=== PATIENT | female | born 1965 | race Caucasian/White ===

== ENCOUNTER 2019-09-14 13:13 | Inpatient (IN) | payer OTHER ==
[~2019-09-14] VITALS: Ht 172.7 cm; Wt 98.0 kg
[2019-09-14] MEDS ORDERED: FAMOTIDINE 20 MG/2 ML VIAL IV STA ×2 (13:16→22:41)
[2019-09-14] MEDS ORDERED: METHYLPREDNISOLONE SOD SUCC 125 MG/2ML VIAL IV STA (13:16)
[2019-09-14] MEDS ORDERED: IPRATROPIUM BROMIDE 0.02% 2.5 ML NEB NEB STA (13:16)
[2019-09-14] MEDS ORDERED: ALBUTEROL SULF 0.083% NEB SOLN 3 ML NEB NEB STA (13:16)
[2019-09-14] MEDS ORDERED: SODIUM CHLORIDE 0.9% 1000ML 1,000 ML IV STA (13:16)
--- OUTSIDE RECORDS SUMMARY | 2019-09-14 13:17 | XMS REPORT ---
Author [facility] Address Unknown Phone Unavailable Care Team Providers Care Banking Analyst Name Role Phone ANIA GUTIERREZ Unavailable Unavailable ANDREW ORTEGA Unavailable Unavailable Payers Payer Name Policy Type Policy Number Effective Date Expiration Date Problems This patient has no known problems. Allergies, Adverse Reactions, Alerts This patient has no known allergies or adverse reactions. Medications This patient has no known medications. Encounters Start Date/Time End Date/Time Encounter Type Admission Type Attending [facility] Care Department Encounter ID 2019-05-04 16:23:00 2019-05-04 16:23:00 Emergency E MHSE [id number] 2019-03-23 09:48:00 2019-03-23 09:48:00 Outpatient MHSE MHSE [id number] 2019-01-12 16:16:00 2019-01-12 16:16:00 Outpatient MHSE [id number] Results Test Description Test Time Test Comments Text Results Atomic Results Result Comments POCT-GLUCOSE METER 2019-09-13 07:01:00 POC-GLUCOSE METER (BEAKER) (test prfo=1954) 216 mg/dL 70-110 : TESTED AT [place] [id number] [facility], [address]: [employer] Helper [id number] for ESPERANZA SERNA POCT-GLUCOSE [id number] 21:44:00* Test Item Value Reference Range Comments POC-GLUCOSE METER (BEAKER) (test vbsg=3435) 200 mg/dL 70-110 : TESTED AT [place] [id number] [facility], [address]: [employer] Helper [id number] for WHITLEY CLAROS POCT-GLUCOSE [id number] 17:33:00* Test Item Value Reference Range Comments POC-GLUCOSE METER (BEAKER) (test bojo=2674) 221 mg/dL 70-110 : TESTED AT [address], [address]: [employer] Helper [id number] for JOSE LUIS JEFFERY POCT-GLUCOSE [id number] 11:51:00* Test Item Value Reference Range Comments POC-GLUCOSE METER (BEAKER) (test pxnx=9460) 169 mg/dL 70-110 : Notified RN/MD: TESTED AT [address], [address]: [employer] Helper [id number] for TERENCE LINNTELL POCT-GLUCOSE [id number] 07:26:00* Test Item Value Reference Range Comments POC-GLUCOSE METER (BEAKER) (test belx=4423) 130 mg/dL 70-110 : Notified RN/MD: TESTED AT [address], [address]: [employer] Helper [id number] for TERENCE LINNTELL POCT-GLUCOSE [id number] 21:28:00* Test Item Value Reference Range Comments POC-GLUCOSE METER (BEAKER) (test bnjd=2876) 215 mg/dL 70-110 : TESTED AT [address], [address]: [employer] Operator Helper [id number] for Katya Chavez POCT-GLUCOSE [id number] 17:27:00* Test Item Value Reference Range Comments POC-GLUCOSE METER (BEAKER) (test mrjw=1638) 152 mg/dL 70-110 : TESTED AT [address], [address]: [employer] Operator Helper [id number] for BOBBI DESOUZA POCT-GLUCOSE [id number] 13:17:00* Test Item Value Reference Range Comments POC-GLUCOSE METER (BEAKER) (test knti=0882) 258 mg/dL 70-110 : TESTED AT [address], [address]: [employer] Operator Helper [id number] for OHSELENE MILES POCT-BLOOD GASES, [id number] 14:28:00* Test Item Value Reference Range Comments TEMP, CELSIUS-POC (BEAKER) (test xyzp=1431) 37.0 FIO2-POC (BEAKER) (test aksh=3469) TESTED AT [address] [address] PH, ARTERIAL-POC (BEAKER) (test whll=6973) 7.407 7.350-7.450 PCO2, ARTERIAL-POC (BEAKER) (test helc=3061) 27.6 mm Hg 35.0-45.0 PO2, ARTERIAL-POC (BEAKER) (test jfdd=2261) 95.0 mm Hg 80.0-90.0 SO2, ARTERIAL-POC (BEAKER) (test lrjm=8283) 98.0 % 96.0-97.0 HCO3, ARTERIAL-POC (BEAKER) (test bbtc=5852) 17.4 meq/L 21.0-29.0 BASE EXCESS, ARTERIAL-POC (BEAKER) (test nlts=6361) -7.0 meq/L -2.0-3.0 [id number] 14:28:00* Test Item Value Reference Range Comments POC-SODIUM (BEAKER) (test hnlc=7053) 137 meq/L 135-148 TESTED AT [place] [id number] [id number] 14:28:00* Test Item Value Reference Range Comments POC-POTASSIUM (BEAKER) (test shtc=3371) 4.1 meq/L 3.6-5.5 TESTED AT [place] [address]130 [id number] 14:28:00* Test Item Value Reference Range Comments POC-GLUCOSE (BEAKER) (test ksiy=6913) 359 mg/dL 70-110 TESTED AT [place] [address]130 POCT-CALCIUM [id number] 14:28:00* Test Item Value Reference Range Comments POC-CALCIUM IONIZED (BEAKER) (test vgcc=2530) 1.19 mmol/L 1.12-1.27 TESTED AT [place] [address]130 [id number] 14:28:00* Test Item Value Reference Range Comments POC-HEMATOCRIT (BEAKER) (test bomt=7667) 40 % 36-45 TESTED AT [place] [address]130 [id number] 14:28:00* Test Item Value Reference Range Comments POC-HEMOGLOBIN (MELISSA) (test dqmv=1675) 13.6 g/dL 12.0-15.0 TESTED AT [facility] [address] [facility] [address] AT [facility] [address] [facility] [address] TROPONIN [id number] 14:07:00* Test Item Value Reference Range Comments TROPONIN I (MELISSA) (test xcyk=569) < ng/mL 0.00-0.03 Troponin I (TnI) levels must be interpreted in the context of the presenting sym ptoms and the clinical findings. Elevated TnI levels indicate myocardial damage, but are not specific for ischemic heart disease. Elevated TnI levels are seen in patients with other cardiac conditions (including myocarditis and congestive h eart failure), and slight TnI elevations occur in patients with other conditions , including sepsis, renal failure, acidosis, acute neurological disease, and per sistent tachyarrhythmia.[employer] ID - HASEEB [id number] 14:01:00* Test Item Value Reference Range Comments MAGNESIUM (MELISSA) (test irei=930) 2.3 mg/dL 1.6-2.6 Specimen slightly hemolyzed [employer] ID - HASEEB CB-TYPE NATRIURETIC FACTOR (BNP)2019-09-09 13:37:00* Test Item Value Reference Range Comments B-TYPE NATRIURETIC PEPTIDE (MELISSA) (test qsbd=185) 16 pg/mL 0-100 [employer] ID - HASEEB CRAD, CHEST, 2 [id number] 12:29:00Reason for exam:->sob, coughFINAL REPORT INDICATION: sob, cough COMPARISON: None TECHNIQUE: Frontal and lateral views of the chest. FINDINGS: Lungs and pleura: Clear lungs. No effusion.Heart and mediastinum: Normal heart size. Unremarkable mediastinal contours.Osseous structures: No acute abnormality.Additional findings: None. IMPRESSION: No acute intrathoracic abnormality. Signed: Mikki Earl Verified Date/Time: 09/09/2019 12:29:29 Reading Location: [facility] Radiology Reading Room C METABOLIC [id number] 12:19:00* Test Item Value Reference Range Comments SODIUM (BEAKER) (test yqcy=536) 136 meq/L 136-145 POTASSIUM (BEAKER) (test ruov=817) 4.4 meq/L 3.5-5.1 CHLORIDE (BEAKER) (test gabz=188) 105 meq/L 98-107 CO2 (BEAKER) (test ojwg=503) 21 meq/L 22-29 BLOOD UREA NITROGEN (BEAKER) (test fthw=857) 15 mg/dL 7-21 CREATININE (BEAKER) (test jdfw=661) 0.98 mg/dL 0.57-1.25 GLUCOSE RANDOM (BEAKER) (test wryc=992) 163 mg/dL 70-105 CALCIUM (BEAKER) (test nibm=627) 9.4 mg/dL 8.4-10.2 EGFR (BEAKER) (test srzc=2685) 59 mL/min/1.73 sq m ESTIMATED GFR IS NOT ACCURATE CREATININE CLEARANCE IN PREDICTING GLOMERULAR FILTRATION RATE. ESTIMATED GFR IS NOT APPLICABLE FOR DIALYSIS PATIENTS. [employer] ID - HASEEB CCBC W/PLT COUNT & AUTO [id number] 12:05:00* Test Item Value Reference Range Comments WHITE BLOOD CELL COUNT (BEAKER) (test xwhv=418) 9.8 K/ L 3.5-10.5 RED BLOOD CELL COUNT (BEAKER) (test agfg=198) 4.59 M/ L 3.93-5.22 HEMOGLOBIN (BEAKER) (test ayap=802) 13.9 GM/DL 11.2-15.7 HEMATOCRIT (BEAKER) (test zbut=777) 40.9 % 34.1-44.9 MEAN CORPUSCULAR VOLUME (BEAKER) (test sakb=288) 89.1 fL 79.4-94.8 MEAN CORPUSCULAR HEMOGLOBIN (BEAKER) (test ibdk=782) 30.3 pg 25.6-32.2 MEAN CORPUSCULAR HEMOGLOBIN CONC (BEAKER) (test zlsa=357) 34.0 GM/DL 32.2-35.5 RED CELL DISTRIBUTION WIDTH (BEAKER) (test clch=786) 13.6 % 11.7-14.4 PLATELET COUNT (BEAKER) (test ifxz=676) 254 K/CU MM 150-450 MEAN PLATELET VOLUME (BEAKER) (test wbdr=807) 9.2 fL 9.4-12.3 NUCLEATED RED BLOOD CELLS (BEAKER) (test lchs=296) 0 /100 WBC 0-0 NEUTROPHILS RELATIVE PERCENT (BEAKER) (test sles=410) 83 % LYMPHOCYTES RELATIVE PERCENT (BEAKER) (test zmdw=235) 12 % MONOCYTES RELATIVE PERCENT (BEAKER) (test bgxx=446) 3 % EOSINOPHILS RELATIVE PERCENT (BEAKER) (test tzio=237) 0 % BASOPHILS RELATIVE PERCENT (BEAKER) (test pauw=238) 1 % NEUTROPHILS ABSOLUTE COUNT (BEAKER) (test rarg=099) 8.20 K/ L 1.56-6.13 LYMPHOCYTES ABSOLUTE COUNT (BEAKER) (test btgj=423) 1.20 K/ L 1.18-3.74 MONOCYTES ABSOLUTE COUNT (BEAKER) (test fjsh=124) 0.29 K/ L 0.24-0.36 EOSINOPHILS ABSOLUTE COUNT (BEAKER) (test liuw=848) 0.00 K/ L 0.04-0.36 BASOPHILS ABSOLUTE COUNT (BEAKER) (test jyfb=884) 0.06 K/ L 0.01-0.08 IMMATURE GRANULOCYTES-RELATIVE PERCENT (BEAKER) (test zclt=3084) 1 % 0-1 CT, [id number] 18:46:00FINAL REPORT EXAMINATION: CT SCAN OF THE ABDOMEN AND PELVIS CLINICAL HISTORY:Abdominal distention. Bowel obstruction, low-grade. COMPARISON EXAM: None TECHNIQUE: Following the administration of oral and IV contrast, axial tomographic images were acquired through the abdomen and pelvis. The exam was performed according to our departmental dose optimization program which includes automated exposure control, adjustment of the mA and/or kV according to patient's size and/or use of iterative reconstructive technique. FINDINGS: There is an infraumbilical midline abdominal wall incision. Fluid is noted within the subcutaneous tissues along the incision extending for 7 cm in length by 2 cm in width by 3 cm in the AP dimension. Finding may reflect postoperative seroma, abscess or resolving hematoma. No associated gas. Small volume of gas and scattered punctate foci of increased attenuation are also noted in the subcutaneous tissues of the abdominal wall compatible with subcutaneous injection sites. The heart size is normal. No evidence of a pericardial or pleural effusion. Minimal atelectasis is noted in the dependent portion of the lung bases. Distal esophagus is decompressed. The gallbladder is absent. No evidence of pathologic biliary dilat ation. The liver demonstrates relatively homogeneous enhancement. Pancreas demon strates mild atrophy with fatty infiltration. The spleen measures 12 cm in lengt h. No evidence of an adrenal mass. No evidence of renal obstruction, nephrolithi asis or perinephric edema. The ureters are decompressed. The oral contrast admin istered for today's examination has migrated into the descending colon. No evide nce of mechanical bowel obstruction, pneumatosis or pneumoperitoneum. Segments of the colon including the ascending, transverse, sigmoid and rectosigmoid segme nts demonstrate mild wall thickening. Mild colonic diverticulosis is also suspec brayden without definite evidence of diverticulitis. The aorta is normal in caliber. Contrast also opacifies the portal venous system, mesenteric vessels, renal ves sels, IVC, iliac and visualized femoral vessels although evaluation of the femor al and iliac veins is mildly limited by timing of the contrast bolus. Uterus is absent. No evidence of an adnexal mass. The bladder demonstrates wall thickening but is also decompressed. There is also subtle infiltration of the soft tissues adjacent to the bladder. Postoperative changes are noted involving the spine at the level of L4-L5 and L5-S1. Associated streak artifact limits characterization of the adjacent bony and soft tissues. IMPRESSION: Midline infraumbilical i ncision with a 7 x 2 x 3 cm subcutaneous fluid collection, possible postoperativ e seroma. Abscess or resolving hematoma would also be in the differential diagno sis. Recommend clinical correlation. Bladder wall thickening with subtle infiltr ation of the soft tissues, nonspecific but possible cystitis. Urinalysis correla tion recommended. Mild segmental colonic wall thickening. Incomplete distention versus a colitis. No evidence of mechanical bowel obstruction. Signed: Alin Villareal MDReport Verified Date/Time: 12/05/2018 18:46:28 Reading Location: [address] Reading Room [id number] 07:03:00* Test Item Value Reference Range Comments PHOSPHORUS (BEAKER) (test edyg=057) 4.3 mg/dL 2.3-4.7 [id number] 07:03:00* Test Item Value Reference Range Comments MAGNESIUM (BEAKER) (test auca=248) 2.2 mg/dL 1.6-2.6 BASIC METABOLIC [id number] 07:03:00* Test Item Value Reference Range Comments SODIUM (BEAKER) (test vyxh=884) 141 meq/L 136-145 POTASSIUM (BEAKER) (test smmb=123) 4.0 meq/L 3.5-5.1 CHLORIDE (BEAKER) (test oaeb=826) 107 meq/L 98-107 CO2 (BEAKER) (test dzom=128) 26 meq/L 22-29 BLOOD UREA NITROGEN (BEAKER) (test pqwq=496) 8 mg/dL 7-21 CREATININE (BEAKER) (test rtcn=533) 0.80 mg/dL 0.57-1.25 GLUCOSE RANDOM (BEAKER) (test aeeo=390) 134 mg/dL 70-105 CALCIUM (BEAKER) (test ahlh=190) 9.2 mg/dL 8.4-10.2 EGFR (BEAKER) (test jnli=5496) 75 mL/min/1.73 sq m ESTIMATED GFR IS NOT ACCURATE CREATININE CLEARANCE IN PREDICTING GLOMERULAR FILTRATION RATE. ESTIMATED GFR IS NOT APPLICABLE FOR DIALYSIS PATIENTS. RAD, ABDOMEN/KUB, 1 VIEW [id number] 16:36:00Reason for exam:->constipation, hx of bowel loopsFINAL REPORT EXAM: AP abdominal radiograph HISTORY PROVIDED: Constipation, history of bowel loops COMPARISON: None available IMPRESSION:The bowel gas pattern is nonspecific but appears nonobstructive. There is a moderate to large amount of stool within the colon compatible with a clinical diagnosis of constipation. While no definite free air is seen, this examination is insensitive for the detection of free air. Vertebroplasty changes are noted in the lower lumbar spine. Surgical clips are noted in the right upper quadrant. No acute osseous abnormality. Signed: Jj Guerrero [facility] Verified Date/Time: 12/03/2018 16:36:40 Reading Location: [facility] , SPINE, LUMBAR, [id number] 13:39:00FINAL REPORT MR, SPINE, THORACIC, WITH \T\ WITHOUT CONTRAST, MR, SPINE, LUMBAR, WITH \T\ WITHOUT CONTRAST INDICATION: Mid-back/thoracic spine pain, first study09/2018 L45 and L5 S1 fusion then L5 compression fx wtih ky phoplasty 11/05/18 bowel incontinence and T10 sensory level TECHNIQUE: Multiplana r, multisequence unenhanced MR images of the entire spine were obtained. DINORAH RISON: None FINDINGS:Thoracic spine:The vertebral bodies have normal height, ali gnment, and signal intensity. The intervertebral discs have normal height and si gnal intensity. The spinal cord is normal in caliber and signal intensity. There is no significant foraminal or spinal canal stenosis. Paraspinal soft tissues a re unremarkable. Lumbar spine:Anterior stabilization hardware involving L5-S1 an d L4-5 with interbody spacer placement. Vertebroplasty changes are noted within the L4 and L5 vertebral bodies. Otherwise normal signal characteristics are exhi bited by the vertebral bodies. There is no malalignment or aggressive lesion. Th e conus medullaris terminates at the L1 level. The descending nerve roots of the cauda equina are normal in appearance and free of abnormal postcontrast enhance ment. There is no significant foraminal or spinal canal stenosis. Paraspinal so ft tissue structures are unremarkable. IMPRESSION: No aggressive osseous lesio n is identified within the thoracic or lumbar spine. There is no abnormal enhanc ement of the osseous or nervous structures. Vertebroplasty changes noted at L4 a nd L5; anterior fusion hardware at L4-5 and L5-S1 with interbody spacer placemen t. Alignment is preserved. No canal or foraminal stenosis. Signed: JR Colmenares Robert [facility] Verified Date/Time: 12/03/2018 13:39:44 Reading Location: [facility] C013 Neuro Reading Room , SPINE, THORACIC, [id number] 13:39:00FINAL REPORT MR, SPINE, THORACIC, WITH \T\ WITHOUT CONTRAST, MR, SPINE, LUMBAR, WITH \T\ WITHOUT CONTRAST INDICATION: Mid-back/thoracic spine pain, first study09/2018 L45 and L5 S1 fusion then L5 compression fx wtih ky phoplasty 11/05/18 bowel incontinence and T10 sensory level TECHNIQUE: Multiplana r, multisequence unenhanced MR images of the entire spine were obtained. DINORAH RISON: None FINDINGS:Thoracic spine:The vertebral bodies have normal height, ali gnment, and signal intensity. The intervertebral discs have normal height and si gnal intensity. The spinal cord is normal in caliber and signal intensity. There is no significant foraminal or spinal canal stenosis. Paraspinal soft tissues a re unremarkable. Lumbar spine:Anterior stabilization hardware involving L5-S1 an d L4-5 with interbody spacer placement. Vertebroplasty changes are noted within the L4 and L5 vertebral bodies. Otherwise normal signal characteristics are exhi bited by the vertebral bodies. There is no malalignment or aggressive lesion. Th e conus medullaris terminates at the L1 level. The descending nerve roots of the cauda equina are normal in appearance and free of abnormal postcontrast enhance ment. There is no significant foraminal or spinal canal stenosis. Paraspinal so ft tissue structures are unremarkable. IMPRESSION: No aggressive osseous lesio n is identified within the thoracic or lumbar spine. There is no abnormal enhanc ement of the osseous or nervous structures. Vertebroplasty changes noted at L4 a nd L5; anterior fusion hardware at L4-5 and L5-S1 with interbody spacer placemen t. Alignment is preserved. No canal or foraminal stenosis. Signed: JR Colmenares Robert MDReport Verified Date/Time: 12/03/2018 13:39:44 Reading Location: [address] Neuro Reading Room , SPINE, LUMBAR, 2 OR 3 [id number] 11:56:00 Reason for exam:->L5 compression fx wtih kyphoplasty 11/05/18 bowel incontinence and T10 sensory levelShould this be performed at the bedside?->YesFINAL REPORT Lumbar spine. HISTORY: L5 compression fracture with kyphoplasty. Bowel incontinence. COMPARISON STUDY: None available. FINDINGS: Three views of the lumbar spine demonstrate prior kyphoplasty at L5 and L4. There has been anterior fusion at L4/L5 and L5/S1 with placement of interverteb ral discs. No definite acute fracture is seen. MRI has been ordered. Signed: Raffaele Barros Verified Date/Time: 12/03/2018 11:56:59 Reading Location: [facility] Radiology Reading Room [id number] 06:34:00* Test Item Value Reference Range Comments PHOSPHORUS (BEAKER) (test cuxt=050) 4.7 mg/dL 2.3-4.7 [id number] 06:34:00* Test Item Value Reference Range Comments MAGNESIUM (BEAKER) (test yorc=101) 2.1 mg/dL 1.6-2.6 BASIC METABOLIC [id number] 06:34:00* Test Item Value Reference Range Comments SODIUM (BEAKER) (test epjz=985) 141 meq/L 136-145 POTASSIUM (BEAKER) (test kksb=921) 3.9 meq/L 3.5-5.1 CHLORIDE (BEAKER) (test mbno=954) 106 meq/L 98-107 CO2 (BEAKER) (test kcuk=678) 28 meq/L 22-29 BLOOD UREA NITROGEN (BEAKER) (test ypfo=818) 9 mg/dL 7-21 CREATININE (BEAKER) (test este=530) 0.75 mg/dL 0.57-1.25 GLUCOSE RANDOM (BEAKER) (test vsoe=640) 126 mg/dL 70-105 CALCIUM (BEAKER) (test ndzg=329) 9.1 mg/dL 8.4-10.2 EGFR (BEAKER) (test xsnn=8237) 81 mL/min/1.73 sq m ESTIMATED GFR IS NOT ACCURATE CREATININE CLEARANCE IN PREDICTING GLOMERULAR FILTRATION RATE. ESTIMATED GFR IS NOT APPLICABLE FOR DIALYSIS PATIENTS. HEMOGLOBIN [id number] 13:50:00* Test Item Value Reference Range Comments HEMOGLOBIN A1C (BEAKER) (test nsfo=853) 6.3 % 4.3-6.1 MR, SPINE, CERVICAL, [id number] 10:55:00FINAL REPORT MR, SPINE, CERVICAL, WITH \T\ WITHOUT CONTRAST INDICATION: dizziness, neck pain, TECHNIQUE: Multiplanar, multisequence MR imaging of the cervical spine was performed with and without intravenous contrast. COMPARISON: None. FINDINGS: Cord: Normal caliber. No signal abnormalities. No abnormal postcontrast enhancement. Osseous structures: No aggressive osseous lesions or abnormal postcontrast enhancement is identified in the cervical vertebral bodies. Chronic compression deformity is evident at C7 without retropulsion. The craniocervical junction is normal. Discs: Normal height and signal intensity. Canal: No critical canal or foraminal lungs. Soft tissues: Paraspinal soft tissues are unremarkable. IMPRESSION: Unremarkable MR examination of the cervical spine. Signed: JR Colmenares Robert MDReport Verified Date/Time: 12/02/2018 10:55:04 Reading Location: [address] Neuro Reading Room Electronically sig isaiah by: DARRON COLMENARES on 12/02/2018 10:55 AM MR, BRAIN, [id number] 10:36:00FINAL REPORT MR, BRAIN, WITH \T\ WITHOUT CONTRAST INDICATION: dizziness, neck pain TECHNIQUE: Multiplanar, multisequence MR imaging of the brain was obtained before and after uneventful administration of gadolinium contrast. COMPARISON: Correlations noncontrast head CT obtained December 01, 2018 FINDINGS:No foci of abnormal enhancement, restricted diffusion, or susceptibility artifact are seen within the brain parenchyma or extra-axial spaces. Negligible deep white matter changes are present in the supratentorial brain. There is no intracranial hemorrhage, extra-axial collection, or mass. The ventricular system is normal in size and configuration. The cortical sulci are within normal limits. The larger intracranial vascular flow voids are preserved. No abnormality of the skull base or calvarium is present. The visualized paranasal sinuses, mastoid air cells, and orbits are within normal limits. IMPRESSION: No imaging abnormality to explain the provided symptoms. Signed: JR Colmenares Robert MDReport Verified Date/Time: 12/02/2018 10:36:05 Reading Location: [address] Neuro Reading Room [id number] 10:31:00* Test Item Value Reference Range Comments PHOSPHORUS (BEAKER) (test znog=471) 5.0 mg/dL 2.3-4.7 [id number] 10:31:00* Test Item Value Reference Range Comments MAGNESIUM (BEAKER) (test eaco=463) 1.9 mg/dL 1.6-2.6 HEPATIC FUNCTION [id number] 10:31:00* Test Item Value Reference Range Comments TOTAL PROTEIN (BEAKER) (test ptgk=723) 6.1 gm/dL 6.0-8.3 ALBUMIN (BEAKER) (test mbwn=3904) 3.5 g/dL 3.5-5.0 BILIRUBIN TOTAL (BEAKER) (test kixu=232) 0.5 mg/dL 0.2-1.2 BILIRUBIN DIRECT (BEAKER) (test rryn=475) 0.2 mg/dL 0.1-0.5 ALKALINE PHOSPHATASE (BEAKER) (test vjzk=363) 98 U/L 40-150 AST (SGOT) (BEAKER) (test uawv=348) 14 U/L 5-34 ALT (SGPT) (BEAKER) (test lyzw=735) 25 U/L 6-55 BASIC METABOLIC [id number] 09:53:00* Test Item Value Reference Range Comments SODIUM (BEAKER) (test qalo=728) 140 meq/L 136-145 POTASSIUM (BEAKER) (test ozom=533) 3.7 meq/L 3.5-5.1 CHLORIDE (BEAKER) (test vgbl=849) 106 meq/L 98-107 CO2 (BEAKER) (test rmfn=658) 27 meq/L 22-29 BLOOD UREA NITROGEN (BEAKER) (test irre=809) 11 mg/dL 7-21 CREATININE (BEAKER) (test iegi=921) 0.79 mg/dL 0.57-1.25 GLUCOSE RANDOM (BEAKER) (test nrwj=262) 111 mg/dL 70-105 CALCIUM (BEAKER) (test iwgw=061) 8.8 mg/dL 8.4-10.2 EGFR (BEAKER) (test uioh=8061) 76 mL/min/1.73 sq m ESTIMATED GFR IS NOT ACCURATE CREATININE CLEARANCE IN PREDICTING GLOMERULAR FILTRATION RATE. ESTIMATED GFR IS NOT APPLICABLE FOR DIALYSIS PATIENTS. PT/[id number] 06:31:00* Test Item Value Reference Range Comments PROTIME (BEAKER) (test lxqn=043) 12.9 seconds 11.7-14.7 INR (BEAKER) (test xmqx=897) 1.0 <=5.9 PARTIAL THROMBOPLASTIN TIME (BEAKER) (test pbfa=115) 31.0 seconds 22.5-36.0 RECOMMENDED COUMADIN/WARFARIN INR THERAPY RANGESSTANDARD DOSE: 2.0 - 3.0 Inclu susy: PROPHYLAXIS for venous thrombosis, systemic embolization; TREATMENT for miranda ous thrombosis and/or pulmonary embolus.HIGH RISK: Target INR is 2.5-3.5 for pat ients with mechanical heart valves.PROTHROMBIN TIME/[id number] 06:30:00* Test Item Value Reference Range Comments PROTIME (BEAKER) (test jkho=648) 12.9 seconds 11.7-14.7 INR (BEAKER) (test kova=612) 1.0 <=5.9 RECOMMENDED COUMADIN/WARFARIN INR THERAPY RANGESSTANDARD DOSE: 2.0 - 3.0 Inclu susy: PROPHYLAXIS for venous thrombosis, systemic embolization; TREATMENT for miranda ous thrombosis and/or pulmonary embolus.HIGH RISK: Target INR is 2.5-3.5 for pat ients with mechanical heart valves.CBC W/PLT COUNT & AUTO [id number] 06:24:00* Test Item Value Reference Range Comments WHITE BLOOD CELL COUNT (BEAKER) (test shnx=799) 7.9 K/ L 3.5-10.5 RED BLOOD CELL COUNT (BEAKER) (test wtrq=248) 4.33 M/ L 3.93-5.22 HEMOGLOBIN (BEAKER) (test ahfw=440) 12.3 GM/DL 11.2-15.7 HEMATOCRIT (BEAKER) (test gtll=936) 39.4 % 34.1-44.9 MEAN CORPUSCULAR VOLUME (BEAKER) (test buyj=159) 91.0 fL 79.4-94.8 MEAN CORPUSCULAR HEMOGLOBIN (BEAKER) (test vryl=885) 28.4 pg 25.6-32.2 MEAN CORPUSCULAR HEMOGLOBIN CONC (BEAKER) (test qbso=930) 31.2 GM/DL 32.2-35.5 RED CELL DISTRIBUTION WIDTH (BEAKER) (test gcuj=665) 13.2 % 11.7-14.4 PLATELET COUNT (BEAKER) (test jhlp=558) 239 K/CU MM 150-450 MEAN PLATELET VOLUME (BEAKER) (test azoj=913) 9.2 fL 9.4-12.3 NUCLEATED RED BLOOD CELLS (BEAKER) (test pbkb=326) 0 /100 WBC 0-0 NEUTROPHILS RELATIVE PERCENT (BEAKER) (test nais=351) 53 % LYMPHOCYTES RELATIVE PERCENT (BEAKER) (test rhrj=338) 37 % MONOCYTES RELATIVE PERCENT (BEAKER) (test kgjp=959) 6 % EOSINOPHILS RELATIVE PERCENT (BEAKER) (test zjeg=618) 2 % BASOPHILS RELATIVE PERCENT (BEAKER) (test ubai=068) 1 % NEUTROPHILS ABSOLUTE COUNT (BEAKER) (test jqqx=395) 4.14 K/ L 1.56-6.13 LYMPHOCYTES ABSOLUTE COUNT (BEAKER) (test nmhc=843) 2.91 K/ L 1.18-3.74 MONOCYTES ABSOLUTE COUNT (BEAKER) (test rzdl=295) 0.47 K/ L 0.24-0.36 EOSINOPHILS ABSOLUTE COUNT (BEAKER) (test ntgo=959) 0.19 K/ L 0.04-0.36 BASOPHILS ABSOLUTE COUNT (BEAKER) (test fgfa=600) 0.06 K/ L 0.01-0.08 IMMATURE GRANULOCYTES-RELATIVE PERCENT (BEAKER) (test gywz=9160) 1 % 0-1 POCT-GLUCOSE [id number] 21:26:00* Test Item Value Reference Range Comments POC-GLUCOSE METER (BEAKER) (test wcxo=6053) 118 mg/dL 70-110 TESTED AT [address] [address] TROPONIN [id number] 15:54:00* Test Item Value Reference Range Comments TROPONIN I (BEAKER) (test rjgw=106) < ng/mL 0.00-0.03 Troponin I (TnI) levels must be interpreted in the context of the presenting sym ptoms and the clinical findings. Elevated TnI levels indicate myocardial damage, but are not specific for ischemic heart disease. Elevated TnI levels are seen in patients with other cardiac conditions (including myocarditis and congestive h eart failure), and slight TnI elevations occur in patients with other conditions , including sepsis, renal failure, acidosis, acute neurological disease, and per sistent tachyarrhythmia.BASIC METABOLIC [id number] 15:53:00* Test Item Value Reference Range Comments SODIUM (BEAKER) (test eghv=621) 144 meq/L 136-145 POTASSIUM (BEAKER) (test jnuw=671) 4.3 meq/L 3.5-5.1 CHLORIDE (BEAKER) (test qeit=693) 108 meq/L 98-107 CO2 (BEAKER) (test iqjh=257) 26 meq/L 22-29 BLOOD UREA NITROGEN (BEAKER) (test avuk=304) 12 mg/dL 7-21 CREATININE (BEAKER) (test juda=164) 0.80 mg/dL 0.57-1.25 GLUCOSE RANDOM (BEAKER) (test cwqf=127) 113 mg/dL 70-105 CALCIUM (BEAKER) (test akwr=372) 9.6 mg/dL 8.4-10.2 EGFR (BEAKER) (test ohnq=4051) mL/min/1.73 sq m INSUFFICIENT CLINICAL DATA TO CALCULATE ESTIMATED GFR. [id number] 15:47:00* Test Item Value Reference Range Comments MAGNESIUM (BEAKER) (test ddtv=655) 2.2 mg/dL 1.6-2.6 HEPATIC FUNCTION [id number] 15:47:00* Test Item Value Reference Range Comments TOTAL PROTEIN (BEAKER) (test zbpq=778) 6.7 gm/dL 6.0-8.3 ALBUMIN (BEAKER) (test uddw=7158) 3.9 g/dL 3.5-5.0 BILIRUBIN TOTAL (BEAKER) (test ergz=765) 0.5 mg/dL 0.2-1.2 BILIRUBIN DIRECT (BEAKER) (test keew=754) 0.2 mg/dL 0.1-0.5 ALKALINE PHOSPHATASE (BEAKER) (test pswn=972) 107 U/L 40-150 AST (SGOT) (BEAKER) (test zqow=583) 17 U/L 5-34 ALT (SGPT) (BEAKER) (test xssh=148) 31 U/L 6-55 CT, BRAIN, WITHOUT [id number] 15:31:00Reason for exam:->HeadacheIs the patient ?->UnknownWhat is the patient's sedation requirement?->No SedationFINAL REPORT CT head without contrast. Reason for exam: Headacheheadache dizziness Comparisons: No priors Discussion: Multiple axial CT images of the head are provided without contrast evaluated in brain and bone windows. This exam was performed according to our departmental dose optimization program which includes automated exposure control, adjustment of the mA and/or kV according to patient's size and/or use of iterative reconstructive technique. Colby-white differentiation is maintained. There is no CT evidence of intracranial hemorrhage, mass-effect, hydrocephalus, shift, or extra-axial collections. The visualized orbital contents, bones and surrounding soft tissues are unremarkable. The visualized paranasal sinuses and mastoid air cells are unremarkable. Impressions: No CT evidence of acute intracranial process. Signed: Clarissa [place] Verified Date/Time: 12/01/2018 15:31:55 Reading Location: [facility] Radiology Reading Room B-TYPE NATRIURETIC FACTOR (BNP)2018-12-01 15:09:00* Test Item Value Reference Range Comments B-TYPE NATRIURETIC PEPTIDE (BEAKER) (test bpkq=176) 32 pg/mL 0-100 CBC W/PLT COUNT & AUTO [id number] 14:27:00* Test Item Value Reference Range Comments WHITE BLOOD CELL COUNT (BEAKER) (test qmcx=900) 9.1 K/ L 3.5-10.5 RED BLOOD CELL COUNT (BEAKER) (test kaij=997) 4.66 M/ L 3.93-5.22 HEMOGLOBIN (BEAKER) (test ivlo=732) 13.5 GM/DL 11.2-15.7 HEMATOCRIT (BEAKER) (test zpve=597) 41.9 % 34.1-44.9 MEAN CORPUSCULAR VOLUME (BEAKER) (test egxf=023) 89.9 fL 79.4-94.8 MEAN CORPUSCULAR HEMOGLOBIN (BEAKER) (test ihfp=773) 29.0 pg 25.6-32.2 MEAN CORPUSCULAR HEMOGLOBIN CONC (BEAKER) (test whsj=178) 32.2 GM/DL 32.2-35.5 RED CELL DISTRIBUTION WIDTH (BEAKER) (test onrb=687) 13.3 % 11.7-14.4 PLATELET COUNT (BEAKER) (test ovcl=651) 254 K/CU MM 150-450 MEAN PLATELET VOLUME (BEAKER) (test xrjp=499) 9.2 fL 9.4-12.3 NUCLEATED RED BLOOD CELLS (BEAKER) (test kocc=353) 0 /100 WBC 0-0 NEUTROPHILS RELATIVE PERCENT (BEAKER) (test qryi=558) 62 % LYMPHOCYTES RELATIVE PERCENT (BEAKER) (test qiqq=769) 30 % MONOCYTES RELATIVE PERCENT (BEAKER) (test ftot=863) 5 % EOSINOPHILS RELATIVE PERCENT (BEAKER) (test rduy=118) 2 % BASOPHILS RELATIVE PERCENT (BEAKER) (test hhvy=257) 1 % NEUTROPHILS ABSOLUTE COUNT (BEAKER) (test pavb=511) 5.57 K/ L 1.56-6.13 LYMPHOCYTES ABSOLUTE COUNT (BEAKER) (test pkts=534) 2.69 K/ L 1.18-3.74 MONOCYTES ABSOLUTE COUNT (BEAKER) (test grfb=361) 0.46 K/ L 0.24-0.36 EOSINOPHILS ABSOLUTE COUNT (BEAKER) (test wpsu=121) 0.14 K/ L 0.04-0.36 BASOPHILS ABSOLUTE COUNT (BEAKER) (test yurn=288) 0.08 K/ L 0.01-0.08 IMMATURE GRANULOCYTES-RELATIVE PERCENT (BEAKER) (test hxwn=3939) 1 % 0-1
[2019-09-14] MEDS ORDERED: MAGNESIUM SULFATE 2GM/50ML 50 ML IV ONE (13:30)
[2019-09-14] MEDS ORDERED: DEXAMETHASONE SOD PHOS 10 MG/1 ML VIAL IM ONE (13:30)
[2019-09-14] MEDS ORDERED: DIPHENHYDRAMINE HCL INJ 50 MG/ML VIAL IV ONE ×2 (13:30→21:00)
[2019-09-14 13:53] LABS: BASOPHILS # (AUTO) 0.1 (0.0-0.1); BASOPHILS % 0.4 % (0.0-1.0); HEMATOCRIT 44.1 % (34.2-44.1); HEMOGLOBIN 14.6 g/dL (12.0-16.0); LYMPHOCYTES # (AUTO) 1.4 (1.0-3.2); LYMPHOCYTES % 10.9 % (18.0-39.1); MEAN CORPUSCULAR HEMOGLOBIN 29.9 pg (28-32); MEAN CORPUSCULAR HGB CONC 33.1 g/dL (31-35); MEAN CORPUSCULAR VOLUME 90.4 fL (81-99); MONOCYTES # (AUTO) 0.4 (0.2-0.8); NEUTROPHILS # (AUTO) 10.7 (2.1-6.9); NEUTROPHILS % 83.6 % (38.7-80.0); PLATELET COUNT 320 x10e3/uL (140-360); RED BLOOD COUNT 4.88 x10e6/uL (3.6-5.1); RED CELL DISTRIBUTION WIDTH 13.9 % (11.7-14.4)
[2019-09-14] MEDS ORDERED: LEVALBUTEROL HCL SOLN NEBU 1.25 MG/3 ML NEB ONE (14:00)
[2019-09-14 14:04] LABS: ABG PH 7.48 (7.31-7.41)
[2019-09-14 14:05] LABS: ABG HCO3 21 mmol/L (23-28); ABG PCO2 29 mmHg (41-51); ABG PO2 55 mmHg (80-105)
[2019-09-14 14:18] LABS: ALBUMIN 4.3 g/dL (3.5-5.0); ALBUMIN/GLOBULIN RATIO 1.3 (0.8-2.0); ANION GAP 18.4 mmol/L (8-16); CALCIUM 9.6 mg/dL (8.4-10.2); CREATININE, SERUM 1.14 mg/dL (0.57-1.11); POTASSIUM 4.4 mmol/L (3.5-5.1)
[2019-09-14 14:26] LABS: CREATINE KINASE MB 2.7 ng/mL (0-5.0)
[2019-09-14] MEDS ORDERED: CEFTRIAXONE SOD 1 GM VIAL IV ONE (14:45)
[2019-09-14] MEDS ORDERED: LEVALBUTEROL HCL SOLN NEBU 1.25 MG/3 ML NEB INH PRN (14:45)
[2019-09-14] MEDS ORDERED: AZITHROMYCIN 500MG/SOD CHL 0.9% 250ML BAG IV SCH (14:45)
[2019-09-14] MEDS ORDERED: SODIUM CHLORIDE 0.9% 1000ML 1,000 ML IV SCH (14:45)
[2019-09-14] MEDS ORDERED: AZITHROMYCIN 500MG/NS 250 ML 250 ML IV ONE (14:45)
[2019-09-14] MEDS ORDERED: CEFTRIAXONE SOD 1 GM VIAL IV SCH (14:45)
--- NOTE | 2019-09-14 15:27 | Diagnostic Imaging Report ---
Exam: Chest radiograph Clinical History: Allergic reaction Findings: The cardiomediastinal silhouette and lungs are normal. The regional skeleton and soft tissue are unremarkable. There is no evidence of pleural effusion or pneumothorax. Impression: No radiographic evidence of acute cardiopulmonary disease. Signed by: Dr. Lucho Church MD on 09/14/2019 3:24 PM
[2019-09-14] MEDS ORDERED: AZITHROMYCIN 500MG/NS 250 ML 250 ML IV SCH (15:30)
[2019-09-14] MEDS: CEFTRIAXONE SOD 1 GM/NS 50 ML 50 ML IV SCH (16:10)
[2019-09-14] MEDS ORDERED: ONDANSETRON HCL INJ 2MG/ML 2ML 2 MG/ML VIAL IV PRN (16:15)
[2019-09-14] MEDS ORDERED: ACETAMINOPHEN 325 MG TAB PO PRN (16:15)
[2019-09-14] MEDS ORDERED: INSULIN REGULAR, HUMAN 100 UNIT/1 ML 3ML VIAL IV ONE (16:30)
[2019-09-14] MEDS ORDERED: DEXTROSE 50% SYRINGE 50 ML IV PRN (16:45)
[2019-09-14] MEDS: BACLOFEN 10 MG TAB PO SCH (16:58)
[2019-09-14] MEDS: PANTOPRAZOLE SOD 40 MG TABEC PO SCH (16:58)
[2019-09-14] MEDS: HYDROCODONE/APAP 10MG-325MG TAB PO PRN (16:59)
[2019-09-14] MEDS ORDERED: FAMOTIDINE 20 MG/2 ML VIAL IV SCH (17:00)
--- NOTE | 2019-09-14 17:08 | Diagnostic Imaging Report ---
Exam: CT chest, Clinical history: Severe asthma, Technique: Helical images of the chest were obtained without contrast DOSE REDUCTION: The exams was performed according to the departmental dose-optimization program which includes automated exposure control, adjustment of the mA and/or kV according to patient size and/or use of iterative reconstruction technique. Findings: There is no evidence of pulmonary consolidation, edema, pleural effusion, or pneumothorax. A noncalcified nodule measuring 3.8 mm is noted in the right lower lobe on image 60, series 2. The tracheobronchial tree is clear. The cardiac size is within normal limits. Mild focal thickening of the pericardium is noted. There is no evidence of mediastinal or hilar lymphadenopathy. The great vessels are normal in caliber and orientation. The visualized upper abdominal solid organs are unremarkable. Impression: 1. There is a 3.8 mm noncalcified nodule in the right lower lobe. If indicated, follow-up imaging in 12 months is recommended to ensure stability. 2. Status post cholecystectomy. Signed by: Dr. Lucho Church MD on 09/14/2019 5:05 PM
[2019-09-14] MEDS: INSULIN LISPRO 100 UNIT/1 ML 3ML VIAL SQ SCH ×2 (17:28→21:46)
[2019-09-14] MEDS: INSULIN GLARGINE 100 UNITS/ML VIAL SQ SCH (18:05)
[2019-09-14] MEDS: ENOXAPARIN SOD INJ 40 MG/0.4 ML SYR SC SCH (18:12)
[2019-09-14] MEDS: METHOCARBAMOL 750 MG TAB PO SCH (18:25)
[2019-09-14] MEDS: METHYLPREDNISOLONE SOD SUCC 40 MG/ML VIAL 1ML IV SCH ×2 (18:26→23:37)
--- NOTE | 2019-09-14 18:56 | NUR ---
report given to Jorge NICOLE
[2019-09-14] MEDS: ALBUTEROL/IPRATROPIUM 3 ML NEB NEB SCH ×2 (19:00→23:00)
[2019-09-14] MEDS ORDERED: IPRATROPIUM BROMIDE 0.02% 2.5 ML NEB NEB SCH (19:00)
[2019-09-14 19:44] LABS: LYMPHOCYTES % (MANUAL) 20 % (19-48); MONOCYTES % (MANUAL) 5 % (3.4-9.0); NEUTROPHILS % (MANUAL) 73 % (40-74); PLATELET ESTIMATE ADEQUATE; PLATELET MORPHOLOGY COMMENT NORMAL; RBC MORPHOLOGY COMMENT NORMAL
[2019-09-14] MEDS: DIPHENHYDRAMINE HCL INJ 50 MG/ML VIAL IV PRN (19:51)
--- NOTE | 2019-09-14 19:57 | NUR ---
PT C/O ITCHING AND RASH RETURNING. MEDICATED PER ORDERS C BENADRYL.
[2019-09-14] MEDS: DULOXETINE HCL 30 MG DELAYED RELEASE PO SCH (21:45)
[2019-09-14] MEDS: SIMVASTATIN 20 MG TAB PO SCH (21:45)
[2019-09-14] MEDS: POLYETHYLENE GLYCOL 3350 17 GM PACK PO SCH (21:46)
[2019-09-14] MEDS: PRAMIPEXOLE DIHYDROCHLORIDE 1 MG TAB PO SCH (22:28)
[2019-09-14] MEDS ORDERED: METHYLPREDNISOLONE SOD SUCC 125 MG/2ML VIAL IV ONE (22:45)
[2019-09-14 23:51] VITALS: BP 141/79
--- NOTE | 2019-09-14 23:51 | NUR ---
Received patient from ER via wheelchair. Patient in stable condition, no s/s of distress at this time. All safety measures in place. Will continue to monitor.
[2019-09-15] VITALS (9 sets, daily range): BP systolic 107–141; BP diastolic 60–81
[2019-09-15] MEDS: HYDROCODONE/APAP 10MG-325MG TAB PO PRN ×3 (00:21→14:48)
[2019-09-15] MEDS ORDERED: MUCINEX DM ER1 EACH PO (01:16)
[2019-09-15] MEDS ORDERED: EPINEPHRIN0.3 MG/0.3 IM (01:16)
[2019-09-15] MEDS ORDERED: ASCORBIC ACID500 MG PO (01:16)
[2019-09-15] MEDS ORDERED: BROMPHENIR-PSE118 ML PO (01:16)
[2019-09-15] MEDS ORDERED: MIRAPEX1 MG PO (01:16)
[2019-09-15] MEDS ORDERED: IPRAT-ALBUT 0.5-3 ML NEB (01:16)
[2019-09-15] MEDS ORDERED: PANTOPRAZOLE SO40 MG PO (01:16)
[2019-09-15] MEDS ORDERED: ZOFRAN8 MG PO (01:16)
[2019-09-15] MEDS ORDERED: DOCUSATE SODIU100 MG PO (01:16)
[2019-09-15] MEDS ORDERED: POLYETHYLENE GL17 GM PO (01:16)
[2019-09-15] MEDS ORDERED: BUDESONIDE0.5 GM NEB (01:16)
[2019-09-15] MEDS ORDERED: METHOCARBAMOL750 MG PO (01:16)
[2019-09-15] MEDS ORDERED: MONTELUKAST SOD10 MG PO (01:16)
[2019-09-15] MEDS ORDERED: SIMVASTATIN20 MG PO (01:16)
[2019-09-15] MEDS ORDERED: NYSTATIN100000 UNI PO (01:16)
[2019-09-15] MEDS ORDERED: YUVAFEM10 MCG VG (01:16)
[2019-09-15] MEDS ORDERED: FLONASE 50 MCG (01:16)
[2019-09-15] MEDS ORDERED: CETIRIZINE HCL10 MG PO (01:16)
[2019-09-15] MEDS ORDERED: BACLOFEN10 MG PO (01:16)
[2019-09-15] MEDS ORDERED: VICTOZA 2-0.6 MG/0.1 SC (01:16)
[2019-09-15] MEDS ORDERED: VITAMIN B-121000 MCG PO (01:16)
[2019-09-15] MEDS ORDERED: FLUTICASONE-SA1 EAC2 INH (01:16)
[2019-09-15] MEDS ORDERED: MOVANTIK25 MG PO (01:16)
[2019-09-15] MEDS ORDERED: NORCO 10-325 T1 EACH PO (01:16)
[2019-09-15] MEDS ORDERED: PREDNISONE10 MG PO (01:16)
[2019-09-15] MEDS ORDERED: OS-CAL 500+D T1 EACH PO (01:16)
[2019-09-15] MEDS: DIPHENHYDRAMINE HCL INJ 50 MG/ML VIAL IV PRN (02:06)
[2019-09-15] MEDS: ALBUTEROL/IPRATROPIUM 3 ML NEB NEB SCH ×6 (02:40→23:20)
[2019-09-15] MEDS: SODIUM CHLORIDE 0.9% 1000ML 1,000 ML IV SCH ×2 (04:00→13:09)
--- NOTE | 2019-09-15 04:47 | NUR ---
Patient c/o of worsened itching all over body. Called Dr. Newman and received orders to give Benadryl 50 mg IV now, and then change current PRN Benadryl order to 50 mg IV Q4H PRN.
[2019-09-15] MEDS ORDERED: DIPHENHYDRAMINE HCL INJ 50 MG/ML VIAL IV PRN (05:00)
[2019-09-15] MEDS ORDERED: DIPHENHYDRAMINE HCL INJ 50 MG/ML VIAL IV ONE (05:00)
[2019-09-15] MEDS: METHYLPREDNISOLONE SOD SUCC 40 MG/ML VIAL 1ML IV SCH (05:57)
--- NOTE | 2019-09-15 07:09 | NUR ---
Bedside report given to day nurse. Patient in bed, no s/s of distress at this time. All safety measures in place.
[2019-09-15] MEDS: PANTOPRAZOLE SOD 40 MG TABEC PO SCH ×2 (07:17→17:17)
[2019-09-15] MEDS: INSULIN LISPRO 100 UNIT/1 ML 3ML VIAL SQ SCH ×4 (07:30→19:59)
[2019-09-15 08:19] LABS: BASOPHILS % 0.2 % (0.0-1.0); EOSINOPHILS % 0.3 % (0.0-6.0); HEMOGLOBIN 14.4 g/dL (12.0-16.0); LYMPHOCYTES # (AUTO) 1.1 (1.0-3.2); LYMPHOCYTES % 6.7 % (18.0-39.1); MEAN CORPUSCULAR HGB CONC 32.7 g/dL (31-35); MEAN CORPUSCULAR VOLUME 91.7 fL (81-99); MONOCYTES % 6.4 % (4.4-11.3); NEUTROPHILS # (AUTO) 13.4 (2.1-6.9); PLATELET COUNT 325 x10e3/uL (140-360); RED CELL DISTRIBUTION WIDTH 13.7 % (11.7-14.4)
[2019-09-15 08:38] LABS: ANION GAP 16.1 mmol/L (8-16); CALCIUM 8.3 mg/dL (8.4-10.2); MAGNESIUM 2.8 MG/DL (1.3-2.1); POTASSIUM 4.1 mmol/L (3.5-5.1)
[2019-09-15] MEDS: BACLOFEN 10 MG TAB PO SCH ×2 (08:54→17:14)
[2019-09-15] MEDS: MONTELUKAST SODIUM 10 MG TAB PO SCH (08:54)
[2019-09-15] MEDS: LORATADINE 10 MG TAB PO SCH (08:54)
[2019-09-15] MEDS: METHOCARBAMOL 750 MG TAB PO SCH ×2 (08:54→17:14)
[2019-09-15] MEDS: CEFTRIAXONE SOD 1 GM/NS 50 ML 50 ML IV SCH (08:59)
[2019-09-15 09:11] LABS: PHOSPHORUS 2.5 MG/DL (2.3-4.7)
[2019-09-15] MEDS ORDERED: LORAZEPAM 1 MG TAB PO NR (12:50)
[2019-09-15] MEDS: METHYLPREDNISOLONE SOD SUCC 125 MG/2ML VIAL IV SCH ×3 (13:10→23:53)
[2019-09-15] MEDS: DIPHENHYDRAMINE HCL INJ 50 MG/ML VIAL IV SCH ×4 (14:00→23:00)
[2019-09-15] MEDS ORDERED: DIPHENHYDRAMINE HCL INJ 50 MG/ML VIAL IV SCH (14:00)
[2019-09-15] MEDS ORDERED: DIPHENHYDRAMINE HCL INJ 50 MG/ML VIAL IM STA (14:50)
[2019-09-15] MEDS ORDERED: CALCIUM CARBONATE PO SCH (17:00)
[2019-09-15] MEDS ORDERED: VITAMIN D3 PO SCH (17:00)
[2019-09-15] MEDS: NYSTATIN SUSPENSION 5 ML UDC PO SCH (17:14)
[2019-09-15] MEDS: FAMOTIDINE 20 MG/2 ML VIAL IV SCH (17:14)
[2019-09-15] MEDS: OYST-CAL-D 500MG TABLET PO SCH (17:14)
[2019-09-15] MEDS: INSULIN GLARGINE 100 UNITS/ML VIAL SQ SCH (17:19)
[2019-09-15] MEDS: ENOXAPARIN SOD INJ 40 MG/0.4 ML SYR SC SCH (17:19)
[2019-09-15] MEDS: BUDESONIDE 0.5MG/2 ML NEB INH SCH (18:45)
--- NOTE | 2019-09-15 19:15 | NUR ---
patient received awake, alert, lying quietly in bed. vss. no c/o pain noted. generalized rash remains. blood sugar 467. call placed to re: blood sugar. lantus 20 units sq x 1 ordered. ivf continue to infuse without difficulty. pm assessment complete. noted at the bedside. both patient/ instructed to call for assistance when needed.
--- NOTE | 2019-09-15 19:41 | NUR ---
PATIENT IN STABLE CONDITION WITH NO S/S OF RESPIRATORY DISTRESS. NO PAIN VOICED. IV FLUIDS INFUSING. TELEMETRY APPLIED. PRESENT IN ROOM. CALL LIGHT IS WITHIN REACH, PATIENT INSTRUCTED TO CALL FOR ASSISTANCE NEEDED. BEDSIDE SHIFT REPORT GIVEN TO ONCOMING NURSE.
[2019-09-15] MEDS ORDERED: INSULIN GLARGINE 100 UNITS/ML VIAL SQ SCH (20:00)
--- NOTE | 2019-09-15 20:37 | Consultation ---
DATE OF CONSULTATION: REASON FOR CONSULTATION: Severe skin rash, concerned about infection, cellulitis versus allergic reaction, severe. HISTORY OF PRESENT ILLNESS: This patient, who is a 54-year-old white female, who has history of severe asthma, she has seen several doctors before including an drug safety coordinator, which she was seen for the last five years. She had a workup of it and all came back, apparently she is allergic to several chemicals and environmental . She has been having episodes with asthma and actually. She was in [facility]. She was there for 5 days on steroids. She was discharged with high dose of steroids she was in the hospital a couple of days and then woke up with severe rash and severe itching. The rash is maculopapular rash, and scattered on all her body her back and her lower extremity, so the patient came to the emergency room because she was quite concerned. She called her coding technician. The patient is telling me that she had bad asthma when she was in the hospital before she passed out couple of times with shortness of breath, but the right now she is not short of breath. She is doing okay, but when it is bothering her she cannot sleep and with severe itching. PAST MEDICAL HISTORY: Besides asthma, she had back pain. PAST SURGICAL HISTORY: Back surgery. ALLERGIES: BUT SHE IS ALLERGIC TO TAPE. SHE SHOWED A PICTURE, SHE HAD SOME PROBLEM WITH THAT SEVERAL YEARS AGO. MEDICATION LIST: At the present time reviewed, she was on Tylenol, DuoNeb, baclofen, Pepcid, and prednisone. PHYSICAL EXAMINATION: GENERAL: She is currently alert, oriented, does not seem to be in acute distress. VITAL SIGNS: Stable and afebrile. HEENT: Normocephalic, not icteric. NECK: Supple. CHEST: Clear bilateral. HEART: S1 and S2. No S3, S4, or murmur. ABDOMEN: Soft. Bowel sounds present. No tenderness. EXTREMITIES: No edema. She has diffuse large papular rash indurated over the back and on the thighs and her abdomen. IMPRESSION: I think the patient have severe . I had extensive history from her and apparently she took a cephalosporin 2 weeks ago for possible infection in her toe, but other than that when she went to the previous hospitalization, there was no rash. The rash started yesterday. Besides the severe itching, she denies any complaints. So impression I think the patient have allergic reaction probably to cephalosporin RECOMMENDATION: We will increase the Solu-Medrol 60 q.6 hours. We will schedule Benadryl 50 q.4. We will add Pepcid 20 mg IV as well. Agree with IV fluid. Also local skin moisturizer cream. We will also add Ativan for the itching 1 mg at bedtime and maybe we will increase it if need to 2. We will also agree with Claritin 10 mg daily. Discussed with the patient at length. Discussed with coding technician . Discussed with Internal Medicine. Discussed with the nurse. Answered all the questions. We will follow closely. We will also discontinue all the antibiotic. I do not think she needs antibiotics at the present time. Expected stay in three days. We will see. MD CHAYITO Gant/CINTHIA /[id number]
[2019-09-15] MEDS: POLYETHYLENE GLYCOL 3350 17 GM PACK PO SCH (21:00)
[2019-09-15] MEDS: PRAMIPEXOLE DIHYDROCHLORIDE 1 MG TAB PO SCH (21:00)
[2019-09-15] MEDS: LORAZEPAM 1 MG TAB PO SCH (21:00)
[2019-09-15] MEDS: DULOXETINE HCL 30 MG DELAYED RELEASE PO SCH (21:00)
[2019-09-15] MEDS: SIMVASTATIN 20 MG TAB PO SCH (21:19)
--- NOTE | 2019-09-15 21:39 | NUR ---
recheck blood sugar 261.
[2019-09-16] VITALS (8 sets, daily range): BP systolic 106–145; BP diastolic 53–81
[2019-09-16] MEDS: DIPHENHYDRAMINE HCL INJ 50 MG/ML VIAL IV SCH ×8 (02:00→22:44)
--- NOTE | 2019-09-16 02:00 | NUR ---
patient oob to bathroom without calling. bed alarm remains on. yellow socks off per patient. ivf continue to infuse without difficulty. patient continues to receive benadryl 50 mg ivp q 3 hrs for rash/itching.
--- NOTE | 2019-09-16 02:03 | Consultation ---
DATE OF CONSULTATION: Pulmonary Consultation REASON FOR CONSULT: Severe asthma. HISTORY OF PRESENT ILLNESS: Ms. Rowe is a 54-year-old female. She has severe asthma and had good followup with Carolina Mistry acrobatic rigger. She came into the emergency room with complaints of rash and itching. She has hives and rash all over her body. She reports that she was recently hospitalized for asthma exacerbation. She is on Pulmicort, nebulizer, and oxygen at home. She also is on Nucala and anti-IL-5, which she takes at her acrobatic rigger's office. She reports that she is not having any shortness of breath now, but last night when she came in, she was wheezing and short of breath. She denies any nausea, vomiting, or diarrhea. REVIEW OF SYSTEMS: GENERAL: Denies any fever or chills. HEAD: Denies any head trauma. ENT: Denies any earache. CVS: Denies any chest pain. RESPIRATORY: Shortness of breath, but has improved. The rest of the review of systems are negative, except as in HPI. PAST MEDICAL HISTORY: Severe asthma and back pain, also has osteoporosis secondary to recurrent steroid use and recently had back procedure. FAMILY AND SOCIAL HISTORY: She does not smoke. Does not drink. PHYSICAL EXAMINATION: GENERAL APPEARANCE AND SKIN: She has hives all over her skin. HEENT: Head atraumatic, normocephalic. NECK: Supple. VITAL SIGNS: Temperature 96, pulse of 97, blood pressure 107/60. CHEST: No wheezing. No crackles. Reduced air entry. HEART: S1, S2 audible. ABDOMEN: Soft, nontender. EXTREMITIES: No pedal edema. NEUROLOGIC: She is awake and alert. No focal neurologic deficit. LABORATORY DATA: Labs reviewed. ASSESSMENT/PLAN: 1. A 54-year-old female with generalized rash. The rash is papular rash with possible hives. I think it is an allergic reaction to the medications she received when she was hospitalized for asthma exacerbation at [facility]. She was on high-dose steroids there and also antibiotics. Continue the patient on Benadryl and Pepcid. 2. Asthma exacerbation, currently air entry is improved. I will add Pulmicort. Continue the patient on Solu-Medrol and nebulizer treatment. Oxygen as needed to keep the O2 saturation more than or equal to 92%. Thank you for this consult. MD MARIA ESTHER Benedict/CINTHIA /[id number]
[2019-09-16] MEDS: ALBUTEROL/IPRATROPIUM 3 ML NEB NEB SCH ×6 (03:20→22:50)
[2019-09-16] MEDS: METHYLPREDNISOLONE SOD SUCC 125 MG/2ML VIAL IV SCH ×4 (06:00→23:41)
[2019-09-16] MEDS: BUDESONIDE 0.5MG/2 ML NEB INH SCH ×2 (07:08→19:24)
[2019-09-16] MEDS: HYDROCODONE/APAP 10MG-325MG TAB PO PRN ×2 (07:42→15:50)
[2019-09-16] MEDS: SODIUM CHLORIDE 0.9% 1000ML 1,000 ML IV SCH (08:53)
[2019-09-16] MEDS: LORATADINE 10 MG TAB PO SCH (08:54)
[2019-09-16] MEDS: FAMOTIDINE 20 MG/2 ML VIAL IV SCH (08:54)
[2019-09-16] MEDS: NYSTATIN SUSPENSION 5 ML UDC PO SCH ×2 (08:54→16:59)
[2019-09-16] MEDS: MONTELUKAST SODIUM 10 MG TAB PO SCH (08:55)
[2019-09-16] MEDS: CYANOCOBALAMIN 1,000 MCG TAB PO SCH (08:55)
[2019-09-16] MEDS: OYST-CAL-D 500MG TABLET PO SCH ×2 (08:55→16:59)
[2019-09-16] MEDS: PANTOPRAZOLE SOD 40 MG TABEC PO SCH ×2 (08:56→16:57)
[2019-09-16] MEDS: BACLOFEN 10 MG TAB PO SCH ×2 (09:00→16:59)
[2019-09-16] MEDS ORDERED: CYANOCOBALAMIN 100 MCG PO SCH (09:00)
[2019-09-16] MEDS ORDERED: CYANOCOBALAMIN 1,000 MCG TAB PO SCH (09:00)
[2019-09-16] MEDS: METHOCARBAMOL 750 MG TAB PO SCH ×2 (09:00→16:59)
[2019-09-16] MEDS: INSULIN LISPRO 100 UNIT/1 ML 3ML VIAL SQ SCH ×4 (09:09→21:18)
[2019-09-16] MEDS ORDERED: MORPHINE SULFATE 2 MG/ML SYR 1ML IV PRN (09:15)
[2019-09-16] MEDS: MORPHINE SULFATE INJ 4 MG/ML INJ 1ML IV PRN ×3 (13:47→21:25)
[2019-09-16] MEDS: FAMOTIDINE 20 MG TAB PO SCH (16:57)
[2019-09-16] MEDS: ENOXAPARIN SOD INJ 40 MG/0.4 ML SYR SC SCH (16:59)
[2019-09-16] MEDS: ONDANSETRON HCL 4 MG ORAL DISINTEGRATING TAB PO PRN (17:01)
[2019-09-16] MEDS: INSULIN GLARGINE 100 UNITS/ML VIAL SQ SCH (17:36)
--- NOTE | 2019-09-16 19:10 | NUR ---
RECEIVED REPORT FROM PREVIOUS NURSE. CALL LIGHT WITHIN REACH. PATIENT IN BED. PATIENT IS A&OX3 AND AMBULATES
[2019-09-16] MEDS: PRAMIPEXOLE DIHYDROCHLORIDE 1 MG TAB PO SCH (21:33)
[2019-09-16] MEDS: LORAZEPAM 1 MG TAB PO SCH (21:33)
[2019-09-16] MEDS: POLYETHYLENE GLYCOL 3350 17 GM PACK PO SCH (21:33)
[2019-09-16] MEDS: SIMVASTATIN 20 MG TAB PO SCH (21:33)
[2019-09-16] MEDS: CIPROFLOXACIN-DEXAMETHASONE (OTIC) 7.5 ML BOTTLE OT SCH (21:40)
--- NOTE | 2019-09-16 21:40 | NUR ---
PATIENT WAS TOLD SHE GOT DROPS AND SHE SAID IT IS EYE DROPS THAT ENT DOCTOR TOLD HER AND SHE SAID SHE WILL DO IT HERSELF. I MENTIONED IT WAS EAR DROPS AND SHE SAID SHE HAS AN INFECTION IN THE EYE SO IT IS FOR THE EYE SO I GAVE HER THE BOTTLE AND SHE ADMINISTERED THE MEDICATION
--- NOTE | 2019-09-16 23:37 | NUR ---
CALLED DR. RONDON BECAUSE PATIENT WAS HAVING A BAD COUGH ATTACK AND SOB AND SHE DOES NOT HAVE ANYTHING FOR HER COUGH. DR. RONDON ORDERED ROBITUSSIN WITH CODEINE 10 CC Q4 PRN.
[2019-09-16] MEDS: GUAIFENESIN/CODEINE 10 ML CUP PO PRN (23:41)
[2019-09-17] VITALS (11 sets, daily range): BP systolic 125–161; BP diastolic 82–105
--- NOTE | 2019-09-17 00:06 | Consultation ---
DATE OF CONSULTATION: 09/16/2019 Hospital Consultation HISTORY OF PRESENT ILLNESS: I was kindly asked to see this 54-year-old woman for evaluation of allergic reaction to medication, possibly affecting her upper airway and ears. Her history of present illness, past medical history, and past surgical history were reviewed in detail in the chart and are pertinent for a sensation that she has swelling in her throat and itchy ears. She has a long history of allergy and asthma. It is believed that this current reaction is related to the cephalosporin allergy. PHYSICAL EXAMINATION: The right pinna is normal. Right external auditory canal is normal. Right tympanic membrane is normal. Specifically, there is no fluid noted in the middle ear space. The postauricular area has no pain, swelling, erythema, or tenderness. The left pinna is normal. Left external auditory canal is normal. Left tympanic membrane is normal. Left postauricular area has no pain, swelling, or tenderness. Intranasal examination is noncontributory. Oral cavity examination is normal. Posterior pharyngeal wall has minimal postnasal drainage. She has no palpable cervical adenopathy. ASSESSMENT: Allergic reaction to medication with no clinical involvement of the upper airway. PLAN: 1. Symptomatic treatment with topical therapy in the ear. 2. No additional otolaryngology medications. MD ELAN Guerrier/ALAYNAL /[id number]
[2019-09-17] MEDS: MORPHINE SULFATE INJ 4 MG/ML INJ 1ML IV PRN ×7 (01:45→20:40)
[2019-09-17] MEDS: DIPHENHYDRAMINE HCL INJ 50 MG/ML VIAL IV SCH ×7 (01:45→20:31)
[2019-09-17] MEDS: ALBUTEROL/IPRATROPIUM 3 ML NEB NEB SCH ×6 (03:08→22:50)
[2019-09-17] MEDS: GUAIFENESIN/CODEINE 10 ML CUP PO PRN ×2 (03:48→21:16)
[2019-09-17] MEDS: SODIUM CHLORIDE 0.9% 1000ML 1,000 ML IV SCH ×4 (04:45→23:00)
[2019-09-17] MEDS: METHYLPREDNISOLONE SOD SUCC 125 MG/2ML VIAL IV SCH ×3 (05:31→17:54)
[2019-09-17] MEDS: BUDESONIDE 0.5MG/2 ML NEB INH SCH ×2 (07:16→19:15)
--- NOTE | 2019-09-17 07:20 | NUR ---
GAVE BEDSIDE SHIFT REPORT TO ONCOMING NURSE. PATIENT IN BED ASLEEP. CALL LIGHT WITHIN REACH. PATIENT IS A&OX3 AND AMBULATES
[2019-09-17] MEDS: FAMOTIDINE 20 MG TAB PO SCH ×2 (08:15→17:46)
[2019-09-17] MEDS: PANTOPRAZOLE SOD 40 MG TABEC PO SCH ×2 (08:15→17:46)
[2019-09-17] MEDS: CYANOCOBALAMIN 1,000 MCG TAB PO SCH (08:16)
[2019-09-17] MEDS: NYSTATIN SUSPENSION 5 ML UDC PO SCH ×2 (08:16→17:54)
[2019-09-17] MEDS: BACLOFEN 10 MG TAB PO SCH ×2 (08:16→17:46)
[2019-09-17] MEDS: LORATADINE 10 MG TAB PO SCH (08:16)
[2019-09-17] MEDS: METHOCARBAMOL 750 MG TAB PO SCH ×2 (08:16→17:46)
[2019-09-17] MEDS: OYST-CAL-D 500MG TABLET PO SCH ×2 (08:16→17:46)
[2019-09-17] MEDS: MONTELUKAST SODIUM 10 MG TAB PO SCH (08:16)
[2019-09-17] MEDS: INSULIN LISPRO 100 UNIT/1 ML 3ML VIAL SQ SCH ×4 (09:20→20:41)
[2019-09-17] MEDS: CIPROFLOXACIN-DEXAMETHASONE (OTIC) 7.5 ML BOTTLE OT SCH ×2 (09:21→20:31)
[2019-09-17] MEDS: INSULIN GLARGINE 100 UNITS/ML VIAL SQ SCH (17:54)
[2019-09-17] MEDS: ENOXAPARIN SOD INJ 40 MG/0.4 ML SYR SC SCH (17:54)
--- NOTE | 2019-09-17 18:55 | NUR ---
RECEIVED REPORT FROM PREVIOUS NURSE. CALL LIGHT WITHIN REACH. PATIENT IN BED.
[2019-09-17] MEDS: LORAZEPAM 1 MG TAB PO SCH (20:31)
[2019-09-17] MEDS: POLYETHYLENE GLYCOL 3350 17 GM PACK PO SCH (20:31)
[2019-09-17] MEDS: SIMVASTATIN 20 MG TAB PO SCH (20:31)
[2019-09-17] MEDS: PRAMIPEXOLE DIHYDROCHLORIDE 1 MG TAB PO SCH (20:31)
--- NOTE | 2019-09-17 20:40 | NUR ---
PATIENT COMPLAINING OF ITCHING AND PAIN AND REQUESTED MORPHINE AND BENADRYL. WENT IN THE ROOM WITH THE MEDICATION AND GAVE THE MEDICATION TO THE PATIENT AND PATIENT WAS HAPPY AND WAS SAYING HOW GRATEFUL SHE IS.
--- NOTE | 2019-09-17 21:05 | NUR ---
PATIENT STARTED COUGHING LOUDLY AND STARTED HAVING TROUBLE BREATHING. WENT INTO THE ROOM AND SAW THE PATIENT SITTING AT THE EDGE OF THE BED. PLACED 2 L NC ON THE PATIENT AND THE PATIENT OXYGEN SATURATION WAS TAKEN WHICH WAS 100%. ASKED THE PATIENT TO GET BACK IN BED AND SHE REFUSED AND KEPT ON COUGHING. CALLED A RAPID RESPONSE AND CODE BLUE BECAUSE THE PATIENT WAS NOT TALKING AND KEPT COUGHING. THE RAPID RESPONSE TEAM ARRIVED AND STARTED TREATING THE PATIENT.
[2019-09-17] MEDS ORDERED: NALOXONE HCL INJ 0.4 MG/ML AMP ONE ×6 (21:35→22:39)
[2019-09-17 22:12] LABS: BASOPHILS # (AUTO) 0.1 (0.0-0.1); BASOPHILS % 0.4 % (0.0-1.0); HEMOGLOBIN 14.1 g/dL (12.0-16.0); LYMPHOCYTES # (AUTO) 0.9 (1.0-3.2); MEAN CORPUSCULAR HEMOGLOBIN 29.7 pg (28-32); MEAN CORPUSCULAR HGB CONC 32.8 g/dL (31-35); MEAN CORPUSCULAR VOLUME 90.7 fL (81-99); MONOCYTES # (AUTO) 0.7 (0.2-0.8); MONOCYTES % 5.3 % (4.4-11.3); NEUTROPHILS # (AUTO) 10.8 (2.1-6.9); NEUTROPHILS % 82.6 % (38.7-80.0); PLATELET COUNT 296 x10e3/uL (140-360); RED BLOOD COUNT 4.74 x10e6/uL (3.6-5.1); RED CELL DISTRIBUTION WIDTH 13.7 % (11.7-14.4)
[2019-09-17] MEDS ORDERED: NALOXONE HCL 2 MG in SODIUM CHLORIDE 0.9% 500ML 500 ML IV SCH ×2 (22:15→22:30)
--- NOTE | 2019-09-17 22:30 | NUR ---
Received to 191 post rapid response. Placed on EKG, pulse ox & NBP for monitoring. On Bipap. Needs freq arousing. Assessment done. See interventions.
--- NOTE | 2019-09-17 22:30 | NUR ---
PATIENT WAS TRANSFERRED TO ROOM 191. REPORT GIVEN TO KWAN, ICU NURSE. PATIENT WAS TRANSFERRED VIA STRETCHER WITH ALL HER BELONGINGS.
[2019-09-17 22:36] LABS: ALANINE AMINOTRANSFERASE 48 IU/L (0-55); ALBUMIN/GLOBULIN RATIO 1.3 (0.8-2.0); ALKALINE PHOSPHATASE 69 IU/L (40-150); ANION GAP 17.9 mmol/L (8-16); BLOOD UREA NITROGEN 17 mg/dL (7-26); BUN/CREATININE RATIO 17 (6-25); CALCIUM 8.9 mg/dL (8.4-10.2); CARBON DIOXIDE 19 mmol/L (22-29); CHLORIDE 105 mmol/L (98-107); CREATINE KINASE 123 IU/L (29-168); CREATININE, SERUM 0.99 mg/dL (0.57-1.11); EST GLOMERULAR FILTRATION RATE 58 ML/MIN (60-); GLUCOSE 194 mg/dL (74-118); POTASSIUM 3.9 mmol/L (3.5-5.1); SODIUM 138 mmol/L (136-145)
[2019-09-17] MEDS ORDERED: SODIUM CHLORIDE 0.9% 500ML 500 ML ONE (22:40)
--- NOTE | 2019-09-17 22:40 | NUR ---
Narcan drip started @ 60.1 ml/hr. NS @ 100ml/hr.
[2019-09-17 22:43] LABS: B-TYPE NATRIURETIC PEPTIDE2 97.8 pg/mL (0-100)
[2019-09-17] MEDS ORDERED: NALOXONE HCL IV SCH (22:45)
[2019-09-17] MEDS ORDERED: SODIUM CHLORIDE 0.9% IV SCH (22:45)
--- NOTE | 2019-09-17 22:45 | NUR ---
here. States " I've called a patrol police lieutenant and my custom miller". Explained circumstances of rapid response and transfer to ICU.
[2019-09-17 22:50] LABS: ABG HCO3 18 mmol/L (23-28); ABG PCO2 21 mmHg (41-51); ABG PH 7.56 (7.31-7.41); ABG PO2 119 mmHg (80-105)
--- NOTE | 2019-09-17 23:00 | NUR ---
Perez inserted by Estelle Boyd RN.
--- NOTE | 2019-09-17 23:52 | Diagnostic Imaging Report ---
EXAMINATION: CHEST SINGLE (PORTABLE) INDICATION: Apnea, short of breath, altered status COMPARISON: Chest CT 09/14/2019 FINDINGS: TUBES and LINES: None. LUNGS: Low lung volumes. Lungs are clear. No consolidations. PLEURA: No pleural effusion or pneumothorax. HEART AND MEDIASTINUM: The cardiomediastinal silhouette is unremarkable. BONES AND SOFT TISSUES: No acute osseous lesion. Soft tissues are unremarkable. UPPER ABDOMEN: No free air under the diaphragm. IMPRESSION: No acute thoracic radiographic abnormality. Signed by: Jan Pham DO on 09/17/2019 11:49 PM
[2019-09-18] VITALS (16 sets, daily range): BP systolic 32–162; BP diastolic 70–106
[2019-09-18] LABS: BACTERIA,URINE RARE /HPF; BILIRUBIN,URINE NEGATIVE (NEGATIVE); CLARITY,URINE CLEAR (CLEAR); COLOR,URINE YELLOW (YELLOW); EPITHELIAL CELLS,URINE RARE /LPF; KETONES,URINE NEGATIVE (NEGATIVE); LEUKOCYTE ESTERASE ,URINE NEGATIVE (NEGATIVE); NITRITE,URINE NEGATIVE (NEGATIVE); PROTEIN,URINE DIPSTICK NEGATIVE (NEGATIVE); URINE UROBILINOGEN 0.2 mg/dL (0.2 - 1); WBC,URINE (MAN) 0-5 /HPF (0-5)
[2019-09-18] MEDS: METHYLPREDNISOLONE SOD SUCC 125 MG/2ML VIAL IV SCH ×2 (00:03→05:53)
[2019-09-18] MEDS: DIPHENHYDRAMINE HCL 25 MG CAP PO PRN ×3 (00:16→15:30)
--- NOTE | 2019-09-18 00:16 | NUR ---
Benadryl given per husbands request.
--- NOTE | 2019-09-18 00:30 | NUR ---
Much easier to arouse. States "I want to go home". Advised that she needs to get better before she can go home. and friend remain at bedside.
[2019-09-18 00:58] LABS: LYMPHOCYTES % (MANUAL) 8 % (19-48); METAMYELOCYTES % (MANUAL) 1 % (0-0); MONOCYTES % (MANUAL) 6 % (3.4-9.0); MYELOCYTES % (MANUAL) 2 % (0-0); NEUTROPHILS % (MANUAL) 83 % (40-74); PLATELET ESTIMATE ADEQUATE; PLATELET MORPHOLOGY COMMENT NORMAL; RBC MORPHOLOGY COMMENT NORMAL
--- NOTE | 2019-09-18 01:55 | NUR ---
Opens eyes spontaneously. Requests bipap off. Placed on 2L NC after talking to RT.
[2019-09-18] MEDS: ALBUTEROL/IPRATROPIUM 3 ML NEB NEB SCH ×6 (02:26→23:10)
--- NOTE | 2019-09-18 03:00 | NUR ---
Totally awake & alert. Answers all questions appropriately.
--- NOTE | 2019-09-18 06:03 | NUR ---
Call to Dr. Park. Orders given. Giovani dcd. Decreased solumedrol.
[2019-09-18 06:29] LABS: BASOPHILS % 0.2 % (0.0-1.0); HEMATOCRIT 38.1 % (34.2-44.1); HEMOGLOBIN 12.2 g/dL (12.0-16.0); LYMPHOCYTES # (AUTO) 0.9 (1.0-3.2); LYMPHOCYTES % 6.7 % (18.0-39.1); MEAN CORPUSCULAR HEMOGLOBIN 29.5 pg (28-32); MEAN CORPUSCULAR VOLUME 92.3 fL (81-99); MONOCYTES # (AUTO) 0.6 (0.2-0.8); MONOCYTES % 4.9 % (4.4-11.3); NEUTROPHILS # (AUTO) 10.9 (2.1-6.9); NEUTROPHILS % 84.4 % (38.7-80.0); PLATELET COUNT 266 x10e3/uL (140-360); RED BLOOD COUNT 4.13 x10e6/uL (3.6-5.1); RED CELL DISTRIBUTION WIDTH 13.8 % (11.7-14.4)
[2019-09-18 06:49] LABS: ALANINE AMINOTRANSFERASE 42 IU/L (0-55); ALBUMIN 3.5 g/dL (3.5-5.0); ALBUMIN/GLOBULIN RATIO 1.3 (0.8-2.0); ALKALINE PHOSPHATASE 54 IU/L (40-150); BLOOD UREA NITROGEN 15 mg/dL (7-26); BUN/CREATININE RATIO 17 (6-25); CALCIUM 8.6 mg/dL (8.4-10.2); CARBON DIOXIDE 23 mmol/L (22-29); CHLORIDE 107 mmol/L (98-107); CREATININE, SERUM 0.89 mg/dL (0.57-1.11); EST GLOMERULAR FILTRATION RATE > 60 ML/MIN (60-); GLUCOSE 161 mg/dL (74-118); SODIUM 139 mmol/L (136-145)
[2019-09-18] MEDS: BUDESONIDE 0.5MG/2 ML NEB INH SCH ×2 (07:20→19:23)
[2019-09-18] MEDS: FAMOTIDINE 20 MG TAB PO SCH ×2 (07:45→16:50)
[2019-09-18] MEDS: PANTOPRAZOLE SOD 40 MG TABEC PO SCH ×2 (07:45→16:50)
[2019-09-18] MEDS: INSULIN LISPRO 100 UNIT/1 ML 3ML VIAL SQ SCH ×4 (07:46→21:44)
--- NOTE | 2019-09-18 07:59 | Diagnostic Imaging Report ---
Chest EXAMINATION: CHEST SINGLE (PORTABLE) INDICATION: ^sob ^[id number] ^[id number] COMPARISON: September 17, 2019 FINDINGS: TUBES and LINES: None. LUNGS: Low lung volumes. Lingular platelike atelectasis. PLEURA: No pleural effusion or pneumothorax. HEART AND MEDIASTINUM: The cardiomediastinal silhouette is unremarkable. BONES AND SOFT TISSUES: No acute osseous lesion. Soft tissues are unremarkable. UPPER ABDOMEN: No free air under the diaphragm. IMPRESSION: Lingular platelike atelectasis Signed by: Dr. Kirsten Ho M.D. on 09/18/2019 7:57 AM
[2019-09-18] MEDS: CIPROFLOXACIN-DEXAMETHASONE (OTIC) 7.5 ML BOTTLE OT SCH ×2 (08:44→21:00)
[2019-09-18] MEDS: CYANOCOBALAMIN 1,000 MCG TAB PO SCH (08:44)
[2019-09-18] MEDS: OYST-CAL-D 500MG TABLET PO SCH ×2 (08:44→16:52)
[2019-09-18] MEDS: BACLOFEN 10 MG TAB PO SCH (08:44)
[2019-09-18] MEDS: MONTELUKAST SODIUM 10 MG TAB PO SCH (08:44)
[2019-09-18] MEDS: LORATADINE 10 MG TAB PO SCH (08:44)
[2019-09-18] MEDS: METHOCARBAMOL 750 MG TAB PO SCH ×2 (08:44→16:52)
[2019-09-18] MEDS: NYSTATIN SUSPENSION 5 ML UDC PO SCH ×2 (08:44→16:52)
--- NOTE | 2019-09-18 09:00 | NUR ---
AMBULATED PT TO RESTROOM PT WAS UNSTEADY FROM SIT TO STAND BUT HAD STEADY GAIT WHEN AMBULATING. NURSE IN ROOM
--- NOTE | 2019-09-18 09:10 | NUR ---
TEE DCD AT THIS TIME PT TOLERATED PROCEDURE WELL.
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
[2019-09-18 09:51] LABS: LYMPHOCYTES % (MANUAL) 9 % (19-48); MONOCYTES % (MANUAL) 5 % (3.4-9.0); NEUTROPHILS % (MANUAL) 86 % (40-74); PLATELET ESTIMATE ADEQUATE; PLATELET MORPHOLOGY COMMENT NORMAL; RBC MORPHOLOGY COMMENT NORMAL
[2019-09-18] MEDS ORDERED: LACTULOSE SYRUP 20 GM/30 ML UDC PO PRN (10:30)
[2019-09-18] MEDS: METHYLPREDNISOLONE SOD SUCC 40 MG/ML VIAL 1ML IV SCH ×3 (11:43→23:32)
[2019-09-18] MEDS: GUAIFENESIN/CODEINE 10 ML CUP PO PRN ×2 (13:51→23:32)
--- NOTE | 2019-09-18 13:55 | NUR ---
RECEIVED TO RM AAOX3 NO DISTRESS NOTED, UPDATED ON POC VOICED UNDERSTANDING, ORIENTED TO RM, DENIES PAIN AT THIS TIME, CALL LIGHT IN REACH WILL CONTINUE TO MONITOR
[2019-09-18] MEDS: HYDROCODONE/APAP 10MG-325MG TAB PO PRN (15:30)
--- NOTE | 2019-09-18 15:40 | NUR ---
PT STATES SHE DOES NOT KNOW WHY SHE IS TAKING BACLOFEN AND ROBAXIN TOGETHER, PATIENTS STATES SHE NO LONGER TAKES BACLOFEN. PATIENT INFORMED BOTH MEDICATIONS ARE LISTED ON HOME MEDICATION LIST OBTAINED DURING ADMISSION. THIS NURSE CALLED DR RONDON INFORMED OF PATIENT STATING SHE NO LONGER TAKES BACLOFEN. ORDERS TO DC MEDICATION.
[2019-09-18] MEDS: ENOXAPARIN SOD INJ 40 MG/0.4 ML SYR SC SCH (16:52)
[2019-09-18] MEDS: INSULIN GLARGINE 100 UNITS/ML VIAL SQ SCH (17:18)
--- NOTE | 2019-09-18 18:14 | NUR ---
L AC 20G INFILTRATED, IV REMOVED COVERED SITE WITH 2X2 AND TAPE, R FA 20G X 1 STICK PT TOLERATED WELL.
--- NOTE | 2019-09-18 19:25 | NUR ---
DURING BEDSIDE SHIFT ROUNDS PT STATES THAT SHE WOULD LIKE A DIFFERENT NIGHT NURSE. PT VOICED TO NIGHT NURSE " I DONT FEEL LIKE WE JIVED THE FIRST NIGHT I WAS HERE". ASSIGNMENT CHANGED PER PT REQUEST. BEDSIDE SHIFT REPORT GIVEN TO NEW NIGHTSHIFT NURSE.
--- NOTE | 2019-09-18 19:25 | NUR ---
During bedside shift report, patient informed day and night nurse that she would like a different night nurse. Family at bedside. Assignment changed per patient request.
--- NOTE | 2019-09-18 19:26 | NUR ---
DURING SHIFT ROUND PT APPEARS ANXIOUS, PT KEEP STATING " I DON'T TRUST YOU ALL, YOU DIDN'T GIVE ME ANY REASON TO TRUST YOU THAT'S WHY HE IS HERE" POINTING TO . AT BEDSIDE TRYING TO CALM PATIENT DOWN. PATIENT STARTED TO CALM DOWN AFTER PHYSICAL ASSESSMENT. NO S/S OF DISTRESS NOTED. BED LOCKED AND IN LOW POSITION. CALL LIGHT WITHIN REACH. SIDE RAILS UP X2. HOB ELEVATED. ENCOURAGED TO CALL FOR ASSISTANCE NEEDED. PT VERBALIZED UNDERSTANDING.
--- NOTE | 2019-09-18 20:06 | NUR ---
PT C/O ANXIETY AND IS REQUESTING FOR ATIVAN, SPOKE TO PRISCILLA VO NP OF DR. RONDON. NEW ORDER RECEIVED FOR ATIVAN 1MG PO ONCE.
[2019-09-18] MEDS ORDERED: LORAZEPAM 1 MG TAB PO ONE (20:15)
[2019-09-18] MEDS: POLYETHYLENE GLYCOL 3350 17 GM PACK PO SCH (21:43)
[2019-09-18] MEDS: SIMVASTATIN 20 MG TAB PO SCH (21:44)
[2019-09-18] MEDS: PRAMIPEXOLE DIHYDROCHLORIDE 1 MG TAB PO SCH (21:44)
--- NOTE | 2019-09-18 23:32 | NUR ---
PT C/O COUGHING, MEDICATED WITH PRN COUGH MED.
[2019-09-19] VITALS (7 sets, daily range): BP systolic 113–139; BP diastolic 64–81
--- NOTE | 2019-09-19 01:19 | NUR ---
PT C/O COUGHING AND IS REQUESTING FOR NEB TREATMENT, NOTIFIED RT AT THIS TIME.
--- NOTE | 2019-09-19 01:45 | NUR ---
RT NOW IN PATIENTS ROOM FOR BREATHING TREATMENT.
[2019-09-19] MEDS: ALBUTEROL/IPRATROPIUM 3 ML NEB NEB SCH ×6 (01:58→23:10)
[2019-09-19] MEDS: GUAIFENESIN/CODEINE 10 ML CUP PO PRN (03:32)
--- NOTE | 2019-09-19 03:40 | NUR ---
PT COUGHING, REQUESTING FOR COUGH MED AND NEB TREATMENT. PATIENT MEDICATED FOR COUGH. RT NOTIFIED AT THIS TIME.
--- NOTE | 2019-09-19 03:49 | NUR ---
RT IN PATIENTS ROOM GIVING NEB TREATMENT.
[2019-09-19] MEDS: METHYLPREDNISOLONE SOD SUCC 40 MG/ML VIAL 1ML IV SCH (06:20)
--- NOTE | 2019-09-19 07:00 | NUR ---
RECEIVED BEDSIDE SHIFT REPORT FROM KYRA MINAYA. PT DENIES NEEDS AT THIS TIME.
--- NOTE | 2019-09-19 07:19 | NUR ---
BEDSIDE SHIFT REPORT GIVEN TO DESTINI MINAYA.
[2019-09-19] MEDS: INSULIN LISPRO 100 UNIT/1 ML 3ML VIAL SQ SCH ×4 (07:30→21:00)
[2019-09-19] MEDS: LORATADINE 10 MG TAB PO SCH (08:00)
[2019-09-19] MEDS: CIPROFLOXACIN-DEXAMETHASONE (OTIC) 7.5 ML BOTTLE OT SCH ×2 (08:00→21:00)
[2019-09-19] MEDS: OYST-CAL-D 500MG TABLET PO SCH ×2 (08:00→16:40)
[2019-09-19] MEDS: NYSTATIN SUSPENSION 5 ML UDC PO SCH ×2 (08:00→16:40)
[2019-09-19] MEDS: PANTOPRAZOLE SOD 40 MG TABEC PO SCH ×2 (08:00→16:40)
[2019-09-19] MEDS: FAMOTIDINE 20 MG TAB PO SCH ×2 (08:00→16:40)
[2019-09-19] MEDS: MONTELUKAST SODIUM 10 MG TAB PO SCH (08:01)
[2019-09-19] MEDS: METHOCARBAMOL 750 MG TAB PO SCH ×2 (08:01→16:40)
[2019-09-19] MEDS: CYANOCOBALAMIN 1,000 MCG TAB PO SCH (08:01)
[2019-09-19] MEDS: BUDESONIDE 0.5MG/2 ML NEB INH SCH ×2 (08:15→19:27)
[2019-09-19] MEDS: ONDANSETRON HCL 4 MG ORAL DISINTEGRATING TAB PO PRN ×2 (12:00→19:56)
--- NOTE | 2019-09-19 13:02 | Progress Note ---
DATE: 09/19/2019 CONSULTANTS: 1. Dr. Covarrubias with ID. 2. Dr. Hodges with Pulmonary. 3. Dr. Mullne with ENT. SUBJECTIVE: Rash is resolved, still with significant shortness of breath and cough with exertion. She denies any chest pain, fever, or chills. OBJECTIVE: VITAL SIGNS: Temperature 97.9, pulse is 94, respirations 18, blood pressure 123/73, and pulse ox is 97% on room air. GENERAL: No acute distress. SKIN: Dry and intact. LUNGS: Clear to auscultation. CARDIOVASCULAR: Regular rate and rhythm. HEENT: Normocephalic and atraumatic. ABDOMEN: Soft and nontender. NEUROLOGIC: Alert, awake, and oriented x3. EXTREMITIES: Moves all extremities. No edema. PSYCH: Calm. IMPRESSION: 1. Acute respiratory failure. Resolved. Likely due to medication induced. We will continue to monitor closely. 2. Delayed allergic reaction presumed to cephalosporin. We will continue to treat as needed with Benadryl and steroids. 3. Asthma exacerbation, stable. Pulmonary on the case. Plans PFT today. 4. Diabetes with hyperglycemia. Continue sliding scale insulin and Lantus. 5. Leukocytosis. Likely reactive. We will continue with Cipro and monitor trend. 6. Deep vein thrombosis prophylaxis. On Lovenox. PLAN: To continue current treatment. Prednisone decreased to 40 b.i.d. PFT planned and we will plan discharge in 1 to 2 days once cleared per Pulmonary. Dictated by MATT Ansari Suzanne Newman MD MY/MODL /[id number]
--- NOTE | 2019-09-19 14:24 | NUR ---
Nutrition Screen Note RD Recommendation for Physician: -Continue current diet per MD. Plan of Care: RD following, monitoring for tolerance and adequacy Nutrition reason for involvement: LOS Primary Diagnose(s): Asthma PMH: besides asthma, she had back pain, DM Ht: 68 in Wt: 216 lb BMI: 32.8 kg/m2 IBW: [address] Assessment: 09/19: 54 YOF admitted for asthma with PMH listed below. The pt was seen resting in bed, on bipap, family at bedside. The pt reported her appetite has been fine. She stated she was having some N/V d/t her medications. She stated she has some issues with constipation d/t her back surgeries in the past. She denied chewing or swallowing issues as well. She denied knowing of any food allergies. She stated she is allergic to something which they think is drug related-consults have been sent regarding drug allergy. LBM: not recorded. POC GM: 147. Chart reviewed. Labs and meds reviewed. Pt has been consuming 50-100% of her meals per meal assessment. Pt is on zofran and miralax. Will continue to monitor. Current Diet: ADA diet 1800 Malnutrition Evaluation 09/19 The patient does not meet criteria for a specified degree of malnutrition at this time. Will re-evaluate at follow-up as appropriate. Diet Education Needs Assessment: Diet education not indicated. Diet education indicated, Diet Adequacy: Meeting calorie needs, Meeting protein needs Nutrition Care Level: low Signed: Mimi Velasco RD, LD
[2019-09-19] MEDS: PREDNISONE 10 MG TAB PO SCH (16:40)
[2019-09-19] MEDS: ENOXAPARIN SOD INJ 40 MG/0.4 ML SYR SC SCH (16:40)
[2019-09-19] MEDS: INSULIN GLARGINE 100 UNITS/ML VIAL SQ SCH (16:41)
[2019-09-19] MEDS ORDERED: PREDNISONE 20 MG TAB PO SCH (17:00)
--- NOTE | 2019-09-19 18:28 | Progress Note ---
DATE: SUBJECTIVE: Ms. Rowe is feeling better. The rash has almost resolved. Her breathing is better. REVIEW OF SYSTEMS: HEENT: Negative. PULMONARY: Negative. CARDIAC: She has continued to have some pain. PHYSICAL EXAMINATION: GENERAL: She is otherwise alert, oriented, does not seem in acute distress. VITAL SIGNS: Stable. Currently afebrile. HEENT: She is not icteric. NECK: Supple. CHEST: Clear. HEART: S1 and S2. ABDOMEN: Soft. IMPRESSION: 1. getting better. We will wean down the steroid to 30 mg p.o. b.i.d. We will keep her on that for a while, probably discharge home with prednisone 30 mg p.o. b.i.d., Yumiko to be used daily, Benadryl 50 mg p.o. q.6 hours p.r.n. itching, Pepcid 20 mg p.o. b.i.d. 2. Chronic pain. Discussed with Internal Medicine to wean her down pain medication to her baseline. 3. Discussed with the patient to follow up with Immunology as an outpatient. MD CHAYITO Gant/CINTHIA /[id number]
[2019-09-19] MEDS: DIPHENHYDRAMINE HCL 25 MG CAP PO PRN (18:31)
--- NOTE | 2019-09-19 19:00 | NUR ---
BEDSIDE REPORT DONE, PT IS IN THE BED, NO DISTRESS NOTED, CALL LIGHT IN REACH,
--- NOTE | 2019-09-19 20:00 | NUR ---
INITIAL ASSESSMENT COMPLETE, PT IN BED, COUGHING AT TIMES, NO DISTRESS NOTED, NO REDNESS OR RASH NOTED, BRUISING ON ARMS NOTED, LUNGS DIMINISHED, IV INTACT, VS STABLE, TELE ON PT, ITEMS AT BEDSIDE, CALL LIGHT IN REACH
[2019-09-19] MEDS: PRAMIPEXOLE DIHYDROCHLORIDE 1 MG TAB PO SCH (21:00)
[2019-09-19] MEDS: POLYETHYLENE GLYCOL 3350 17 GM PACK PO SCH (21:00)
[2019-09-19] MEDS: SIMVASTATIN 20 MG TAB PO SCH (21:00)
[2019-09-19] MEDS: HYDROCODONE/APAP 10MG-325MG TAB PO PRN (22:35)
--- NOTE | 2019-09-19 23:00 | NUR ---
PT UP TO BATHROOM WITH BEDSIDE ASSIST, RETURN TO BED, COUGHING WHEN GETS UP, RECOVERS WELL, VS WNL, CALL LIGHT IN REACH
[2019-09-20] VITALS: BP 152/77
[2019-09-20] MEDS: ALBUTEROL/IPRATROPIUM 3 ML NEB NEB SCH ×4 (03:15→15:38)
[2019-09-20 04:00] VITALS: BP 126/71
[2019-09-20] MEDS: GUAIFENESIN/CODEINE 10 ML CUP PO PRN ×2 (05:35→11:53)
--- NOTE | 2019-09-20 07:00 | NUR ---
RECEIVED BEDSIDE SHIFT REPORT FROM SUDHA MINAYA. PT DENIES NEEDS AT THIS TIME.
[2019-09-20] MEDS: INSULIN LISPRO 100 UNIT/1 ML 3ML VIAL SQ SCH ×2 (07:30→12:13)
[2019-09-20] MEDS: BUDESONIDE 0.5MG/2 ML NEB INH SCH (08:04)
[2019-09-20] MEDS: OYST-CAL-D 500MG TABLET PO SCH (08:38)
[2019-09-20] MEDS: METHOCARBAMOL 750 MG TAB PO SCH (08:38)
[2019-09-20] MEDS: PANTOPRAZOLE SOD 40 MG TABEC PO SCH (08:38)
[2019-09-20] MEDS: LORATADINE 10 MG TAB PO SCH (08:38)
[2019-09-20] MEDS: CIPROFLOXACIN-DEXAMETHASONE (OTIC) 7.5 ML BOTTLE OT SCH (08:38)
[2019-09-20] MEDS: PREDNISONE 10 MG TAB PO SCH (08:38)
[2019-09-20] MEDS: FAMOTIDINE 20 MG TAB PO SCH (08:38)
[2019-09-20] MEDS: NYSTATIN SUSPENSION 5 ML UDC PO SCH (08:38)
[2019-09-20] MEDS: CYANOCOBALAMIN 1,000 MCG TAB PO SCH (08:38)
[2019-09-20] MEDS: MONTELUKAST SODIUM 10 MG TAB PO SCH (08:38)
[2019-09-20 08:53] VITALS: BP 114/71
[2019-09-20 09:28] VITALS: BP 114/71
[2019-09-20 12:08] VITALS: BP 129/73
[2019-09-20] MEDS: ONDANSETRON HCL 4 MG ORAL DISINTEGRATING TAB PO PRN (13:36)
[2019-09-20] MEDS ORDERED: PREDNISONE10 MG PO (15:35)
[2019-09-20] MEDS ORDERED: ATIVAN0.5 MG PO (15:59)
[2019-09-20] MEDS ORDERED: FAMOTIDINE20 MG PO (15:59)
[2019-09-20 16:36] VITALS: BP 130/73
--- NOTE | 2019-09-21 00:54 | Pulmonary Function Test ---
DATE OF STUDY: REFERRING PHYSICIAN: NAME OF STUDY: Spirometry report. FINDINGS: Essentially normal study. Forced vital capacity 3.15 L, 80% of predicted. FEV1 2.43 L, 79%. FEV1/FVC ratio 77%. FEF 25 to 75, 77%. There is no significant improvement following inhalation of bronchodilators. MD BENNY Shearer/MODL /[id number]
--- NOTE | 2019-09-21 01:29 | Discharge Summary ---
PRIMARY CARE PHYSICIAN: Dr. Cartwright. CONSULTANTS: 1. Dr. Covarrubias with Infectious Disease. 2. Dr. Hodges with Pulmonary. 3. Dr. Wright with ENT. FINAL DIAGNOSES: 1. Acute respiratory failure. 2. Delayed allergic reaction, presumed due to cephalosporin. 3. Asthma exacerbation. 4. Diabetes. 5. Leukocytosis. PROCEDURE: None. HOSPITAL COURSE: This is a 54-year-old female who presented with extensive rash and allergic reaction with a history of severe asthma. She was recently discharged from [facility] after treatment of hives and rash. She was discharged on 60 mg of prednisone at the time. She was restarted on high doses of prednisone, antihistamines, Benadryl and neb treatments with oxygen via nasal cannula. Stage Set Designer, ID and ENT consulted. She continued to improve. During her stay, a PFT was done and has been cleared for discharge on prednisone 30 mg p.o. b.i.d. and resume antihistamine treatments. She has no visible rash or wheezing or shortness of breath at rest. She has an appointment with her police officer crime prevention at [facility] in two days. She is also advised to follow up for allergy test. Verbalizes understanding. Vital signs, stable, afebrile, we will discharge home with on current treatment. PHYSICAL EXAMINATION: VITAL SIGNS: Temperature 99.3, pulse is 92, respirations 20, blood pressure 130/73, pulse ox is 98% on room air. GENERAL: No acute distress. SKIN: Dry and intact. LUNGS: Clear to auscultation. CARDIOVASCULAR: Regular rate and rhythm. HEENT: Normocephalic, atraumatic. ABDOMEN: Soft and nontender. NEUROLOGIC: Alert, awake, and oriented x3. EXTREMITIES: Moves all extremities. No edema. PSYCH: Calm. DISCHARGE CONDITION: Stable and improved. DISCHARGE MEDICATIONS: Please see medication reconciliation list. TIME SPENT: Total time of discharge is 32 minutes. Dictated by MATT Ansari Suzanne Newman MD MY/MODL /[id number] cc: [facility]Reg[facility]
== END 2019-09-20 16:45 | disposition home or self-care (01) | DRG 606 ==
LOC: ER 13:13 → ERHOLD 14:38 → MED/SURG3 09-15 → ICU 09-17 22:31 → MED/SURG 09-18 13:56
PROVIDERS: ADMIT Internal Medicine; ATTEND Internal Medicine
DX: L27.0 Generalized skin eruption due to drugs and medicaments taken internally (principal); J96.00 Acute respiratory failure, unspecified whether with hypoxia or hypercapnia; J45.901 Unspecified asthma with (acute) exacerbation; E87.1 Hypo-osmolality and hyponatremia; T36.1X5A Adverse effect of cephalosporins and other beta-lactam antibiotics, initial encounter; V00-Y99 External causes of morbidity; G89.29 Other chronic pain; Z79.4 Long term (current) use of insulin; T45.0X5A Adverse effect of antiallergic and antiemetic drugs, initial encounter; T40.2X5A Adverse effect of other opioids, initial encounter; Z99.81 Dependence on supplemental oxygen; E11.22 Type 2 diabetes mellitus with diabetic chronic kidney disease; I12.9 Hypertensive chronic kidney disease with stage 1 through stage 4 chronic kidney disease, or unspecified chronic kidney disease; N18.3 Chronic kidney disease, stage 3 (moderate); E11.65 Type 2 diabetes mellitus with hyperglycemia
CPT/HCPCS: 36415; 36600; 71045; 71250; 80048; 80053; 81001; 82140; 82550; 82553; 82805; 82948; 83605; 83735; 83880; 84100; 84484; 85025; 87040; 87400; 93005; 94060; 94640; 94660; 96365; 96372; 99284; J0456; J0696; J1100; J1200; J1650; J1815; J1817; J2270; J2310; J2920; J2930; J3475; J7030; J7040; J7512; Q0162